=== PATIENT | female | born 1955 | race Caucasian/White ===

== ENCOUNTER 2021-06-18 11:03 | Outpatient (CLI) | payer MEDICARE, OTHER, SELFPAY ==
[2021-06-18 11:35] LABS: Basophils Percent Auto 0.5 % (0.2-1.2); Eosinophils Absolute Auto 0.1 K/mm3 (0-0.3); Eosinophils Percent Auto 1.1 % (0-4.4); Hematocrit 38.3 % (37.0-47.0); Hemoglobin 12.6 g/dL (12.0-15.0); Immature Granulocyte Absolute 0.02 K/mm3 (0.00-0.031); Immature Granulocyte Percent A 0.3 % (0-0.5); Lymphocytes Absolute Auto 3.02 K/mm3 (0.9-3.2); Lymphocytes Percent Auto 40.3 % (18.3-44.2); Mean Corpuscular HGB Conc 32.9 g/dl (32-36); Mean Corpuscular Hemoglobin 29.2 pg (26-34); Mean Corpuscular Volume 88.9 fl (80-100); Mean Platelet Volume 8.6 fl (7.4-10.4); Monocytes Absolute Auto 0.5 K/mm3 (0.1-0.6); Monocytes Percent Auto 6.3 % (2.6-8.5); Neutrophils Absolute Auto 3.9 K/mm3 (1.3-6.7); Neutrophils Percent Auto 51.5 % (45.5-73.1); Platelet Count Result 336 k/mm3 (150-375); Red Blood Count 4.31 M/mm3 (4.2-5.4); Red Cell Distribution Width 13.4 % (11.5-14.5); White Blood Count 7.5 K/mm3 (4.5-10.0)
[2021-06-18 12:01] LABS: Alanine Aminotransferase 18 U/L (4-35); Albumin Level 4.4 g/dL (3.5-5.1); Alkaline Phosphatase 81 U/L (38-126); Anion Gap 7 mmol/L (8-16); Aspartate Amino Transferase 27 U/L (14-36); Bilirubin,Total 0.9 mg/dL (0.2-1.3); Blood Urea Nitrogen 12 mg/dL (7-17); Calcium 9.1 mg/dL (8.4-10.2); Carbon Dioxide 23 mmol/L (22-30); Chloride 108 mmol/L (98-107); Cholesterol 245 mg/dL (0-200); Estimated Glomerular Filt Rate > 60; Glucose 92 mg/dL (65-110); HDL Direct 47 mg/dL; Potassium 3.9 mmol/L (3.4-5.0); Sodium 138 mmol/L (137-145); Triglycerides 149 mg/dL (<150); Uric Acid 4.1 mg/dL (2.5-7.5)
[2021-06-18 12:13] LABS: LDL Cholesterol Direct 131 mg/dL
[2021-06-18 12:22] LABS: Hemoglobin A1C 5.5 % (<5.7)
== END 2021-06-18 11:04 | disposition home or self-care (01) ==
LOC: ANHLAB 11:13
PROVIDERS: PCP Family Medicine; Visit Provider Family Medicine
DX: I10 Essential (primary) hypertension (principal); E78.2 Mixed hyperlipidemia; E79.0 Hyperuricemia without signs of inflammatory arthritis and tophaceous disease; Z13.1 Encounter for screening for diabetes mellitus; Z13.29 Encounter for screening for other suspected endocrine disorder
CPT/HCPCS: 36415; 80053; 80061; 83036; 84443; 84550; 85025

== ENCOUNTER → 2021-08-22 17:52 | Outpatient (CLI) | payer MEDICARE, OTHER, SELFPAY ==
--- NOTE | ~2021-08-22 | DEXA_ITS ---
Bone Density Report Name: Elis Pearson Age: 66 Sex: Female Ethnicity: White Date of : 1955 Indication: postmenopausal; screening for osteoporosis; height loss; Referring Provider: LORIN RAPHAEL Study: Bone densitometry was performed. Exam Date: August 22, 2021 Accession number: [id number] Bone Density: Region BMD T-score Z-score Classification AP Spine (L1-L4) 1.089 0.4 2.3 Normal Femoral Neck (Left) 0.761 -0.8 0.9 Normal Total Hip (Left) 0.819 -1.0 0.4 Normal Femoral Neck (Right) 0.790 -0.5 1.1 Normal Total Hip (Right) 0.784 -1.3 0.1 Osteopenia Total Hip Mean 0.802 -1.2 0.3 Osteopenia World Health Organization criteria for BMD impression classify patients as: Normal (T-score at or above -1.0), Osteopenia (T-score between -1.0 and -2.5), or Osteoporosis (T-score at or below -2.5). 10-year Fracture Risk(1): Major Osteoporotic Fracture 8.1% Hip Fracture 0.6% Reported Risk Factors: [place] (), Neck BMD=0.761, BMI=27.5 (1) FRAX(R) Version 3.08. Fracture probability calculated for an untreated patient. Fracture probability may be lower if the patient has received treatment. Clinical Information Provided by Patient: Has used the following medications: Vitamin D Patient maximum height was 64.0 Menopause Age: 50 Drinks caffeinated beverages Onset of menses at age 11 Number of children 1 Impression: The patient has low bone mass, based on the Right Total Hip T-score. The patient has an estimated ten-year risk of hip fracture of 0.6% and an estimated ten-year risk of major fracture of 8.1%, based on the WHO FRAX algorithm. Discussion: BONE DENSITY IS LOW AT ONE OR MORE SKELETAL SITES. This patient's lowest T-score is low at one or more skeletal sites. It meets the World Health Organization's (WHO) criteria for ?low bone mass? (T-score between -1.0 and -2.5). The patient's 10-year risk of fracture as calculated by FRAX is less than the threshold where pharmacological therapy is recommended by the National Osteoporosis Foundation (NOF). However, all treatment decisions require clinical judgment and consideration of individual patient factors, including patient preferences, comorbidities, previous drug use, risk factors not captured in the FRAX model (e.g., frailty, falls, vitamin D deficiency, increased bone turnover, interval significant decline in bone density) and possible under or overestimation of fracture risk by FRAX. The patient should follow a healthful lifestyle (good nutrition with adequate calcium and vitamin D, and appropriate weight-bearing exercise). Follow-Up: Consider repeating this study in 2 to 3 years to reassess this patient's status, or sooner if there is some new clinical indication. Reported by: LAXMI on 08/22/2021 6:31:00 PM.
--- NOTE | ~2021-08-22 | MM_ITS ---
EXAMINATION: MM screening l[facility] BI w garrett HISTORY: Screening TECHNIQUE: Craniocaudal and mediolateral oblique 3-D tomosynthesis images were obtained and synthetic 2-D images were generated. CAD analysis was submitted and interpreted. COMPARISON: Comparison to multiple prior studies sequentially, with oldest reviewed study dated . BREAST PARENCHYMAL COMPOSITION: There are scattered areas of fibroglandular density. FINDINGS: There is no evidence of suspicious mass, calcification, or architectural distortion to sugg est malignancy in either breast. There has been no suspicious interval change. IMPRESSION: 1. No mammographic evidence of malignancy. 2. Recommend routine screening mammography in one year. BI-RADS Category 1: Negative Reviewed, dictated and finalized at location A.
== END ==
PROVIDERS: PCP Family Medicine; Visit Provider Family Medicine
DX: Z12.31 Encounter for screening mammogram for malignant neoplasm of breast (principal); Z78.0 Asymptomatic menopausal state; M85.89 Other specified disorders of bone density and structure, multiple sites
CPT/HCPCS: 77063; 77067; 77080

== ENCOUNTER → 2022-05-01 09:32 | Outpatient (CLI) | payer MEDICARE, OTHER, SELFPAY ==
--- NOTE | ~2022-05-01 | XR_ITS ---
XR hand RT 2V DATE: 05/01/2022 09:56 INDICATION: Right hand pain TECHNIQUE: AP and lateral views COMPARISON: 06/25/2015 right hand and right wrist FINDINGS: There is polyarticular osteoarthritis involving the triscaphe, first carpometacarpal, first through third metacarpophalangeal joints and multiple interphalangeal joints, particularly distal in terphalangeal joint of first and second digits. No fracture or dislocation, periosteal reaction or bone destruction. No erosive change or chondrocalc inosis. IMPRESSION: Polyarticular osteoarthritis Reviewed, dictated and finalized at location A.
--- NOTE | ~2022-05-01 | XR_ITS ---
XR chest 2V DATE: 05/01/2022 09:56 INDICATION: Acute upper respiratory infection TECHNIQUE: 2 views COMPARISON: None FINDINGS: Normal heart size. No hilar or mediastinal enlargement. Moderate bilateral hyperinflation. No pulmonary infiltrate or consolidation, pleural effusion or pulmonary vascular congestion or pneumo thorax. Degenerative spurring of the thoracic spine. IMPRESSION: No active cardiopulmonary disease Degenerative spurring of the thoracic spine Reviewed, dictated and finalized at location A.
== END ==
PROVIDERS: PCP Family Medicine; Visit Provider Nurse Practitioner Gerontology
DX: M79.641 Pain in right hand (principal); R63.4 Abnormal weight loss; J06.9 Acute upper respiratory infection, unspecified; M19.041 Primary osteoarthritis, right hand; M77.8 Other enthesopathies, not elsewhere classified
CPT/HCPCS: 71046; 73120

== ENCOUNTER 2022-05-10 00:18 | Day surgery (SDC) | payer MEDICARE, OTHER, SELFPAY ==
[2022-04-26 10:14] VITALS: BMI 26.2
[2022-05-10 09:43] VITALS: BP 146/79; PULSE 106; RESP 20; TEMP 36.4; O2SAT 99
[2022-05-10] MEDS: LACTATED RINGERS 1,000 ML 150 ML IV CONT (09:54)
--- NOTE | 2022-05-10 10:07 | WPDANESEPPF ---
Anes - Initial Pre Proc Eval Procedure: Operation Date: 05/10/22 11:00 Proposed Procedures p Screening Colonoscopy - Richard Han MD Date/Time: 05/10/22 10:07 Surgeon: Richard Han MD Pre Op Diagnosis: neoplasm screening Patient Data Age: 67 Gender: F Height: 1.6 m Weight: 63.3 kg Last Vital Signs Temp 36.4 C 05/10/22 09:43 Pulse 106 H 05/10/22 09:43 Resp 20 05/10/22 09:43 BP 146/79 H 05/10/22 09:43 Pulse Ox 99 05/10/22 09:43 O2 Del Method Room Air 05/10/22 09:43 Allergies Allergy/AdvReac Type Severity Reaction Status Date / Time Penicillins Allergy Intermediate SOB and Verified 05/10/22 09:41 rash Home Medications Medication Instructions Recorded Confirmed Type antiarthritic combination no.2 900 900 mg PO .qd #90 tabs 05/31/21 04/29/22 Rx mg tablet (glucosamine-chondroitin) ascorbic acid (vitamin C) 1,000 mg 1 g PO DAILY PRN other 05/31/21 04/29/22 History tablet alendronate 70 mg tablet 70 mg PO WEEKLY 04/26/22 04/29/22 History azithromycin 250 mg tablet See Rx Instructions PO .COMPLEX #6 04/26/22 05/10/22 Rx tabs benzonatate 100 mg capsule 200 mg PO TID PRN cough #30 caps 04/26/22 05/10/22 Rx calcium citrate 315 mg-vitamin D3 1 tablet PO BID 04/26/22 04/29/22 History 5 mcg (200 unit) tablet rosuvastatin 5 mg tablet 5 mg PO DAILY 04/26/22 04/29/22 History albuterol sulfate 90 mcg/actuation 1 inh inhalation Q4-6H PRN sob #1 04/29/22 05/10/22 Rx breath activated powder inhaler ea prednisone 10 mg tablet See Rx Instructions PO DAILY 12 04/29/22 05/10/22 Rx days #30 tabs Patient hx anesthesia problems: none Family hx anesthesia problems: none Results Review: All pre-operative results and documents have been reviewed as part of the pre-operative evaluation. [facility] Past Medical History Medical History Arthritis Combined hyperlipidemia Tremor Family History Family History Sibling Patient's brother is in good health Patient's sister is in good health Mother Family history of diabetes mellitus in first degree relative Family history of heart disease in male family member before age 55 Father Patient's father is Family history of gout Grandparent Diabetes mellitus Other Family history of attention deficit hyperactivity disorder (ADHD) Family history of migraine headaches Social History Social History Social History: Smoking status: Current some day smoker Second hand tobacco smoke exposure: No Alcohol intake: current Alcohol use details: Occasionally Substance use: current Substance use type: marijuana Other substance usage details: occasionally Living arrangements: with family Gender identity (if verbalized by the patient): Female Spiritual care concerns: No Anes - Eval Final PreProcedure Day of Procedure 05/10/22 10:07 Patient weight: normal Heart: regular rate and rhythm Lungs: clear to auscultation Airway: Mallampati scale class II Neurological: alert and oriented Last oral intake: >/= 8 hours ASA classification: III Emergent: no Anesthetic plan: proceed Anesthesia type and monitoring: general GIVS and standard monitoring Results Review: All pre-operative results and documents have been reviewed as part of the pre-operative evaluation. Informed Consent: The patient's anesthetic plan and its attendant risks and benefits were discussed with the patient/family/POA. Questions were solicited and answers provided to the satisfaction of the patient/family/POA.
--- NOTE | 2022-05-10 10:09 | PM.HPGS ---
History of Present Illness History of Present Illness Consent: Risks, benefits, and alternatives have been discussed and questions answered. Patient agrees to proceed with procedure. Chief complaint: neoplasm screening Narrative: Elis Pearson is a 67 year old female referred for colon cancer screening. Her last colonoscopy was 11 years ago. Review of Systems Review of Systems: All systems reviewed & are unremarkable except as noted in HPI and below PMFSH Past Medical History Medical History Arthritis Combined hyperlipidemia Tremor Family History Family History Sibling Patient's brother is in good health Patient's sister is in good health Mother Family history of diabetes mellitus in first degree relative Family history of heart disease in male family member before age 55 Father Patient's father is Family history of gout Grandparent Diabetes mellitus Other Family history of attention deficit hyperactivity disorder (ADHD) Family history of migraine headaches Social History Social History Social History: Smoking status: Current some day smoker Second hand tobacco smoke exposure: No Alcohol intake: current Alcohol use details: Occasionally Substance use: current Substance use type: marijuana Other substance usage details: occasionally Living arrangements: with family Gender identity (if verbalized by the patient): Female Spiritual care concerns: No Meds Home Medications and Allergies Home Medications Medication Instructions Recorded Confirmed Type antiarthritic combination no.2 900 900 mg PO .qd #90 tabs 05/31/21 04/29/22 Rx mg tablet (glucosamine-chondroitin) ascorbic acid (vitamin C) 1,000 mg 1 g PO DAILY PRN other 05/31/21 04/29/22 History tablet alendronate 70 mg tablet 70 mg PO WEEKLY 04/26/22 04/29/22 History azithromycin 250 mg tablet See Rx Instructions PO .COMPLEX #6 04/26/22 05/10/22 Rx tabs benzonatate 100 mg capsule 200 mg PO TID PRN cough #30 caps 04/26/22 05/10/22 Rx calcium citrate 315 mg-vitamin D3 1 tablet PO BID 04/26/22 04/29/22 History 5 mcg (200 unit) tablet rosuvastatin 5 mg tablet 5 mg PO DAILY 04/26/22 04/29/22 History albuterol sulfate 90 mcg/actuation 1 inh inhalation Q4-6H PRN sob #1 04/29/22 05/10/22 Rx breath activated powder inhaler ea prednisone 10 mg tablet See Rx Instructions PO DAILY 12 04/29/22 05/10/22 Rx days #30 tabs Allergies Allergy/AdvReac Type Severity Reaction Status Date / Time Penicillins Allergy Intermediate SOB and Verified 05/10/22 09:41 rash Vital Signs Vital Signs - 24 hr 05/10/22 09:43 Temperature 36.4 C Pulse Rate 106 H Respiratory Rate 20 Blood Pressure 146/79 H Pulse Oximetry 99 Oxygen Delivery Room Air Exam Resp: Auscultation: clear to auscultation bilaterally Cardio: Rate: regular rate Rhythm: regular rhythm GI: GI Palp: Yes Soft to palpation and No Tenderness to palpation present (GI) Assessment and Plan Assessment and plan (1) Encounter for screening colonoscopy: Code(s): Z12.11 - Encounter for screening for malignant neoplasm of colon Status: Acute Assessment and Plan: Colonoscopy with possible biopsy or polypectomy or cautery or injection of substances.
[2022-05-10 11:12] VITALS: BP 120/63; PULSE 81; RESP 22; O2SAT 100
[2022-05-10 11:22] VITALS: BP 125/69; PULSE 68; RESP 16; O2SAT 99
[2022-05-10 11:32] VITALS: BP 129/67; PULSE 67; RESP 17; O2SAT 100
== END 2022-05-10 11:47 | disposition home or self-care (01) ==
PROVIDERS: PCP Family Medicine; Visit Provider Internal Medicine Gastroenterology
PROC: 0DJD8ZZ Inspection of Lower Intestinal Tract, Via Natural or Artificial Opening Endoscopic (ICD-10-PCS; CPT 45378; principal; 2022-05-10 11:00)
DX: Z12.11 Encounter for screening for malignant neoplasm of colon (principal); K57.30 Diverticulosis of large intestine without perforation or abscess without bleeding; K64.8 Other hemorrhoids; M19.90 Unspecified osteoarthritis, unspecified site; E78.2 Mixed hyperlipidemia; R25.1 Tremor, unspecified; F17.210 Nicotine dependence, cigarettes, uncomplicated; F12.90 Cannabis use, unspecified, uncomplicated; Z79.51 Long term (current) use of inhaled steroids
CPT/HCPCS: G0121; J2704; J7120

== ENCOUNTER 2022-09-04 11:55 | Emergency (ER) | payer MEDICARE, OTHER, SELFPAY ==
--- NOTE | 2022-09-04 12:00 | ED.DENTAL ---
HPI - Dental/Oral General Chief complaint: Dental/Oral Stated complaint: sinus pressure, tooth pain Time Seen by Provider: 09/04/22 12:00 Source: patient Mode of arrival: ambulatory Limitations: no limitations History of Present Illness HPI Narrative: Elis is a 67-year-old female patient presenting to the clinic today with complaints of sinus pressure and toothache. She reports this has been going on since Friday. States that she had this same issue last year and she seen the dentist and they told her that her tooth was not infected at that time. She is having pain to the #11 tooth with pressure and pain to the right maxillary sinuses. Is having pain with eating. She denies any fever or chills Related Data Home Medications Medication Instructions Recorded Confirmed ascorbic acid (vitamin C) 1,000 mg 1 g PO DAILY PRN other 05/31/21 09/04/22 tablet alendronate 70 mg tablet 70 mg PO WEEKLY 04/26/22 09/04/22 calcium citrate 315 mg-vitamin D3 1 tablet PO BID 04/26/22 09/04/22 5 mcg (200 unit) tablet Allergies Allergy/AdvReac Type Severity Reaction Status Date / Time Penicillins Allergy Intermediate SOB and Verified 09/04/22 12:06 rash Review of Systems Review of Systems: Pertinent positives per HPI. Patient denies any fever, chills, rash, headache, visual changes, dizziness, cough, runny nose, sore throat, shortness of breath, chest pain, palpitations, nausea, vomiting, diarrhea, constipation, abdominal pain, or any urinary issues. [facility] Past Medical History Medical History Arthritis Combined hyperlipidemia Tremor Family History Family History Sibling Patient's brother is in good health Patient's sister is in good health Mother Family history of diabetes mellitus in first degree relative Family history of heart disease in male family member before age 55 Father Patient's father is Family history of gout Grandparent Diabetes mellitus Other Family history of attention deficit hyperactivity disorder (ADHD) Family history of migraine headaches Social History Social History Social History: Smoking status: Current some day smoker Second hand tobacco smoke exposure: No Alcohol intake: current Alcohol use details: Occasionally Substance use: current Substance use type: marijuana Other substance usage details: occasionally Gender identity (if verbalized by the patient): Female Spiritual care concerns: No Comments At the time of my signature, I reviewed and agree with the nursing past medical, surgical, social, and family history. There is no relevant family history pertinent to the patient complaint. Exam Narrative: General: Well-developed, well nourished, in no apparent distress Head: Normocephalic, atraumatic Eyes: Pupils equally round and reactive to light bilaterally, EOM intact, sclera and conjunctive clear, no discharge, lids normal Ears: TMs intact and clear, ear canals clear, no drainage, grossly hearing normal. Nose: Nares patent, no discharge, no inflammation, right-sided maxillary sinus tenderness. Mouth: Oropharynx without lesions or masses, good dentition, MMM. Tenderness to palpation tooth 11. No dental abscess palpable Neck: Supple, trachea midline, no enlargement of anterior or posterior cervical nodes, no thyroid masses or goiter palpable. Cardio: Regular rate and rhythm, s1 and s2 normal, no murmur appreciated. Resp: Clear to auscultation bilaterally anteriorly and posteriorly, no rhonchi, rales, wheezing or rubs Course Course Emergency Course: Portions of this record may have been created with voice recognition software. Level of Care: Express Care Visit Vital Signs Vital signs: Vital Signs Temperature 36.8 C 09/04/22 12:07 Pulse Ra
[2022-09-04 12:07] VITALS: BP 143/71; PULSE 65; RESP 16; TEMP 36.8; O2SAT 99
== END 2022-09-04 12:25 | disposition home or self-care (01) ==
PROVIDERS: Emergency Provider Nurse Practitioner Family; PCP Family Medicine
DX: J01.00 Acute maxillary sinusitis, unspecified (principal); K08.89 Other specified disorders of teeth and supporting structures; M19.90 Unspecified osteoarthritis, unspecified site; E78.2 Mixed hyperlipidemia
CPT/HCPCS: 99213; G0463

== ENCOUNTER → 2023-09-08 12:57 | Outpatient (CLI) | payer MEDICARE, OTHER, SELFPAY ==
--- NOTE | ~2023-09-08 | XR_ITS ---
EXAMINATION: XR hip BI 2V w AP pelvis DATE: 09/08/2023 13:21 INDICATION: Right hip pain. TECHNIQUE: An anteroposterior view of the pelvis and 2 views of each hip were obtained. COMPARISON: None. FINDINGS: Bone alignment is normal. No fracture. There is advanced right hip osteoarthritis and mild left hip osteoarthritis. There is mild lumbar spondylosis. IMPRESSION: 1. Advanced right hip osteoarthritis and mild left hip osteoarthritis. Reviewed, dictated and finalized at location E. ER FRAMER
== END ==
PROVIDERS: PCP Family Medicine; Visit Provider Family Medicine
DX: M16.0 Bilateral primary osteoarthritis of hip (principal); M25.552 Pain in left hip; M25.551 Pain in right hip
CPT/HCPCS: 73521

== ENCOUNTER 2023-10-31 09:00 | Outpatient (RCR) | payer MEDICARE, OTHER, SELFPAY ==
--- NOTE | 2023-09-26 14:57 | PTOPEVAL1 ---
Assessment and note entered by Redd Rollins, PT Evaluation Information Assessment Status Evaluation Diagnosis Primary OA of Right Hip, R hip pain Onset September 2022 Subjective Information Reports that she is having a lot of pain in the hip with activity and walking. She is not having pain and rest and pain is more related to activity . She has off and on had back and hip pain attributing to problems. She cannot isolate weight onher right leg at this time. Used to frequently walk her dog and has had issues with that. Needs frequent rest breaks. She is currently on prednisone for inflammation. She feel it has helped with pain. Would like to delay or prevent need for hip replacement. Want to be able to walk a mile, walk up hills, and walk up stairs. Reported Pain Level Pain Score 0: Self Report Assessment PT Clinical Summary Patient presents with severe degenerative arthritis of R hip indicated through combination of radiographic imaging and functional hip motion. She has moderate strength in alec hip and pelvic girdle, but lacking functional ROM to complete efficient transfers and proper gait cycle. Plan of Care Interventions Gait Training,Manual Therapy,Neuro Re-education, Therapeutic Activities,Therapeutic Exercise PT Services Indicated Yes Treatment Frequency and 2x/week for 4 weeks Duration These treatments will address the objective and functional deficits as defined above. The patient will be advanced safely and appropriately in order for the patient to progress towards his/her prior level of function. Additional exercises will be introduced and as well as a comprehensive home exercise program upon discharge, if needed, ?to ensure carryover of functional gains achieved in the clinic. This treatment plan has been reviewed and agreement upon by the patient.
--- NOTE | 2023-09-26 14:57 | OPREHPOC ---
Outpatient Therapy Plan of Care This is a Multidisciplinary Plan of Care that may contain components documented by all disciplines (PT, OT, and ST.) PT Problem 1 PT Problem #1 Knowledge Deficit PT Goal 1 Goal Patient will be independent with HEP Target Visit 4 PT Problem 2 PT Problem #2 Impaired Range of Motion PT Goal 1 Goal Improve R hip extension to 10 degrees to allow for improved terminal stride length to normalize gait pattern. Target Visit 8 PT Goal 2 Goal Improve R hip internal rotation to 20 degrees to allow for closed pack positing for terminal stance of gait Target Visit 8 PT Problem 3 PT Problem #3 Impaired Strength PT Goal 1 Goal Improve alec hip flexion strength to 4+/5 to improve foot clearance with ADL and stair climbing Target Visit 8 PT Goal 2 Goal Improve alec hip abduction strength to 4/5 to improve lateral stability with ADL and gait performance Target Visit 8
--- NOTE | 2023-10-22 10:44 | PCPTNOTE ---
Patient called to cancel appointment this date due to illness.
--- NOTE | 2023-10-24 08:28 | PCPTNOTE ---
Patient cancelled Therapy Re-Evaluation secondary to illness. Rescheduled for 10/31/23.
--- NOTE | 2023-10-31 11:59 | PTOPDC ---
Assessment and note entered by Redd Rollins, PT Evaluation Information Assessment Status Discharge Diagnosis Primary OA of Right Hip, R hip pain Onset September 2022 Subjective Information Reports that she feels the exercises are helping but she still does not like putting all of her weight on her right hip. She would still like to delay needing a hip replacement longer if at all possible. Still occasionally get radiating knee pain on the inside. Would like to try therapy on her own for a while and feels comfortable with HEP. Reported Pain Level Pain Score 2: Self Report Assessment PT Clinical Summary Patient has seen some improvement in hip ROM and strength. Still very structurally limited in R hip mobility. I feel a hip replacement would be warranted when patient is ready. My only concern is that if she lets it go too long that there may be compromise to back and knee based on her gait pattern and functional mobility substitutions. Plan of Care PT Services Indicated D/C to HEP
--- NOTE | 2023-10-31 11:59 | OPREHPOC ---
Outpatient Therapy Plan of Care This is a Multidisciplinary Plan of Care that may contain components documented by all disciplines (PT, OT, and ST.) PT Problem 1 PT Problem #1 Knowledge Deficit PT Goal 1 Goal Patient will be independent with HEP Target Visit 4 Progress Met PT Problem 2 PT Problem #2 Impaired Range of Motion PT Goal 1 Goal Improve R hip extension to 10 degrees to allow for improved terminal stride length to normalize gait pattern. Target Visit 8 Progress Met PT Goal 2 Goal Improve R hip internal rotation to 20 degrees to allow for closed pack positing for terminal stance of gait Target Visit 8 Progress Partially Met PT Problem 3 PT Problem #3 Impaired Strength PT Goal 1 Goal Improve alec hip flexion strength to 4+/5 to improve foot clearance with ADL and stair climbing Target Visit 8 Progress Partially Met PT Goal 2 Goal Improve alec hip abduction strength to 4/5 to improve lateral stability with ADL and gait performance Target Visit 8 Progress Partially Met
== END 2023-10-31 15:40 | disposition home or self-care (01) ==
LOC: ANHGOSHPT 09:00
PROVIDERS: PCP Family Medicine; Visit Provider Orthopaedic Surgery
DX: M16.11 Unilateral primary osteoarthritis, right hip (principal)
CPT/HCPCS: 97110; 97140; 97161; 97530

== ENCOUNTER 2024-01-16 11:01 | Outpatient (CLI) | payer MEDICARE, OTHER, SELFPAY ==
--- NOTE | ~2024-01-16 | MM_ITS ---
EXAMINATION: MM screening [facility] BI w garrett HISTORY: Screening mammogram TECHNIQUE: Craniocaudal and mediolateral oblique 3-D tomosynthesis images were obtained and synthetic 2-D images were generated. CAD analysis was submitted and interpreted. COMPARISON: 09/18/2021 bilateral screening mammogram BREAST PARENCHYMAL COMPOSITION: There are scattered areas of fibroglandular density. FINDINGS: There is an approximately 7 mm new spiculated mass in the upper inner quadrant of the left breast at mid to posterior depth, highly suggestive of malignancy. Diagnostic left mammogram and left breast ultrasound examination are recommended. No suspicious mass, architectural distortion, malignant calcification, skin thickening or retraction is noted elsewhere in either breast. IMPRESSION: 1. Approximately 7 mm new spiculated mass in the upper inner quadrant of the left breast, highly sugg estive of malignancy. 2. Diagnostic left mammogram and left breast ultrasound examination are recommended. BI-RADS Category 0: Incomplete: Needs additional imaging evaluation. Reviewed, dictated and finalized at location A. IMPRESSION: 1. Approximately 7 mm new spiculated mass in the upper inner quadrant of the le ft breast, highly suggestive of malignancy. 2. Diagnostic left mammogram and left breast ultrasound examination are recomme nded. BI-RADS Category 0: Incomplete: Needs additional imaging evaluation.
--- NOTE | ~2024-01-16 | DEXA_ITS ---
Bone Density Report Name: OLIVE IZQUIERDO Age: 69 Sex: Female Ethnicity: White Date of : 1955 Indication: osteopenia; monitoring treatment; height loss; postmenopausal Referring Provider: LORIN RAPHAEL Study: Bone densitometry was performed. Exam Date: January 16, 2024 Accession number: [id number] Bone Density: Region BMD T-score Z-score Classification AP Spine (L1-L4) 1.185 1.3 3.4 Normal Femoral Neck (Left) 0.742 -1.0 0.8 Normal Total Hip (Left) 0.812 -1.1 0.4 Osteopenia Femoral Neck (Right) 0.895 0.4 2.2 Normal Total Hip (Right) 0.855 -0.7 0.8 Normal Total Hip Mean 0.834 -0.9 0.6 Normal World Health Organization criteria for BMD impression classify patients as: Normal (T-score at or above -1.0), Osteopenia (T-score between -1.0 and -2.5), or Osteoporosis (T-score at or below -2.5). 10-year Fracture Risk: FRAX not reported because: Treated for osteoporosis Previous Exams: Region Exam Age BMD T-score BMD Change BMD Change Date g/cm2 vs Baseline vs Previous AP Spine(L1-L4) 01/16/2024 69 1.185 1.3 0.096* 0.096* 08/22/2021 66 1.089 0.4 Total Hip(Left) 01/16/2024 69 0.812 -1.1 -0.007 -0.007 08/22/2021 66 0.819 -1.0 Total Hip(Right) 01/16/2024 69 0.855 -0.7 0.071* 0.071* 08/22/2021 66 0.784 -1.3 *Denotes significance at 95% confidence level, LSC for AP Spine = 0.022 g/cm2, LSC for Total Hip = 0.027 g/cm2 Clinical Information Provided by Patient: Is being treated for osteoporosis Has used the following medications: Fosamax (i.e. alendronate), Calcium, vit D included with calcium &amp; in another vitamin combo Patient maximum height was 64.0 Menopause Age: 50 No regular weight bearing exercise Drinks caffeinated beverages Onset of menses at age 11 Number of children 1 Impression: The patient has low bone mass, based on the Left Total Hip T-score. No significant bone loss was observed. Discussion: PATIENT UNDER TREATMENT WITH NO SIGNIFICANT BMD LOSS SINCE LAST EXAM. In an untreated patient, BMD typically declines with age. A lack of decline or gain is usually a sign that treatment is efficacious and fracture risk is reduced. It is important to ask patients whether they are taking their medications and to encourage continued and appropriate compliance with their osteoporosis therapies to reduce fracture risk. It is also important to review their risk factors a
== END 2024-01-16 11:02 ==
LOC: MICIMG 11:02
PROVIDERS: PCP Family Medicine; Visit Provider Family Medicine
DX: Z12.31 Encounter for screening mammogram for malignant neoplasm of breast (principal); N63.22 Unspecified lump in the left breast, upper inner quadrant; R92.8 Other abnormal and inconclusive findings on diagnostic imaging of breast; M85.88 Other specified disorders of bone density and structure, other site; Z78.0 Asymptomatic menopausal state
CPT/HCPCS: 77063; 77067; 77080

== ENCOUNTER 2024-02-06 09:18 | Outpatient (CLI) | payer MEDICARE, OTHER, SELFPAY ==
--- NOTE | ~2024-02-06 | MMUS_ITS ---
EXAMINATION: MM diagnostic liz LT w garrett, US breast LT limited HISTORY: Left breast mass TECHNIQUE: Additional 3-D tomosynthesis images of the left breast were performed and synthetic 2-D im ages were generated. CAD analysis was submitted and interpreted. High resolution Limited left breast ultrasound was performed. COMPARISON: Comparison to multiple prior studies sequentially, with oldest reviewed study dated 12/2020. BREAST PARENCHYMAL COMPOSITION: Not dense: There are scattered areas of fibroglandular density. FINDINGS: MAMMOGRAPHIC FINDINGS: There is a spiculated mass in the upper inner quadrant of the left breast, middle third. No suspiciou s calcifications. ULTRASOUND: Limited left breast ultrasound: At 11:00, 6 cm from the nipple there is an antiparallel hypoechoic so lid mass measuring 6 mm without significant posterior features or internal vascularity. This correspo nds to the mammographic abnormality. IMPRESSION: 1. Spiculated left breast mass with sonographic correlate at 11:00, 6 cm from the nipple measuring 6 mm maximum dimension. 2. Ultrasound-guided left breast biopsy recommended. BI-RADS category 5, highly suggestive of malignancy. Reviewed, dictated and finalized at location B. IMPRESSION: 1. Spiculated left breast mass with sonographic correlate at 11:00, 6 cm from t he nipple measuring 6 mm maximum dimension. 2. Ultrasound-guided left breast biopsy recommended. BI-RADS category 5, highly suggestive of malignancy.
== END 2024-02-06 09:19 ==
LOC: MICIMG 09:19
PROVIDERS: PCP Physician Assistant; Visit Provider Physician Assistant
DX: R92.8 Other abnormal and inconclusive findings on diagnostic imaging of breast (principal)
CPT/HCPCS: 76642; 77061; 77065; G0279

== ENCOUNTER 2024-02-17 12:35 | Outpatient (CLI) | payer MEDICARE, OTHER, SELFPAY ==
--- NOTE | ~2024-02-17 | MMUS_ITS ---
EXAMINATION: US GUIDED NEEDLE BIOPSY DATE: 02/17/2024 13:26 CDT INDICATION: 11:00 6 mm breast mass TECHNIQUE AND FINDINGS: The risks and potential benefits of the procedure were discussed with the patient, and written inform ed consent was obtained. Timeout procedure was performed. After sterile preparation of the left breas t, 1% lidocaine was utilized for local anesthesia. A 12G spring-loaded biopsy gun needle was advanced to the edge of the region of interest from a later al. approach utilizing sonographic guidance. A total of three tissue core samples were obtained thro ugh the lesion. An Inrad tissue marker clip was then placed at the biopsy site. Hemostasis was achie norbert. A sterile bandage was applied. The patient tolerated procedure well and there was no evidence of immediate complication. The patien t was given verbal instructions prior to departing from the department. A two view mammogram was perf ormed to document tissue marker clip placement. The tissue samples were submitted to surgical patholo gy for histologic analysis. IMPRESSION: Ultrasound guided biopsy of left 11:00 breast mass with biopsy marker placement. Please refer to path ology report for histologic analysis Reviewed, dictated and finalized at Location A. Reviewed, dictated and finalized at location A. IMPRESSION: Ultrasound guided biopsy of left 11:00 breast mass with biopsy marker placement . Please refer to pathology report for histologic analysis
== END 2024-02-17 12:36 | disposition home or self-care (01) ==
PROVIDERS: PCP Physician Assistant; Visit Provider Surgery
DX: C50.912 Malignant neoplasm of unspecified site of left female breast (principal)
CPT/HCPCS: 19083; 88305; 88342; 88360; A4648

== ENCOUNTER 2024-03-12 09:12 | Outpatient (CLI) | payer MEDICARE, OTHER, SELFPAY ==
--- NOTE | ~2024-03-12 | MMUS_ITS ---
US_MAGSEEDLT_US, MM post biopsy invasive LT DATE: 03/12/2024 09:56 (accession [id number]), 03/12/2024 10:27 (accession [id number]) INDICATION: Preoperative ultrasound guided localization procedure with Magseed placement TECHNIQUE: The benefits of the procedure, technique and potential complications were discussed with t akua patient. The patient verbalized understanding and gave consent. Timeout procedure was performed. The skin of the left breast was prepared with sterile Betadine. 1% lidocaine local anesthetic was adm inistered to the skin and underlying subcutaneous tissues. An introducer needle was placed from a lat eral approach into the lesion of the left breast at 11:00 6 cm from the nipple. The maxillary was dep loyed through the tip of the needle with confirmation of placement by ultrasound imaging. The patient was very cooperative and tolerated procedure well, without apparent complication or compl aint. ML and CC mammographic images obtained following the procedure reveal the Magseed within the mass adj acent to the prior biopsy marker. COMPARISON: February 17, 2024 left ultrasound-guided biopsy and postbiopsy diagnostic left mammogram IMPRESSION: Successful percutaneous ultrasound-guided Magseed placement at 11:00 left mass 6 cm from nipple Reviewed, dictated and finalized at Location A. Reviewed, dictated and finalized at location B. IMPRESSION: Successful percutaneous ultrasound-guided Magseed placement at 11:0 0 left mass 6 cm from nipple
== END 2024-03-12 09:13 | disposition home or self-care (01) ==
LOC: ANHIMG 09:14
PROVIDERS: PCP Family Medicine; Visit Provider Surgery
DX: C50.912 Malignant neoplasm of unspecified site of left female breast (principal)
CPT/HCPCS: 19285; A4648

== ENCOUNTER 2024-04-08 10:02 | Outpatient (CLI) | payer MEDICARE, OTHER, SELFPAY ==
--- NOTE | 2024-04-08 10:00 | ECG_ITS ---
Test Date: 2024-04-08 10:28:45 Measurements Intervals [place] Rate: 63 P: 32 [place]: 146 QRS: 27 QRSD: 89 T: 10 QT: 402 QTc: 412 Interpretive Statements SINUS RHYTHM NORMAL ECG No previous ECG available for comparison Electronically Signed On 04-08-2024 15:51:41 CDT by Vishal Guido M.D.
== END 2024-04-08 10:03 | disposition home or self-care (01) ==
LOC: ANHSURGERY 10:07
PROVIDERS: PCP Family Medicine; Visit Provider Surgery
DX: Z01.818 Encounter for other preprocedural examination (principal); E78.00 Pure hypercholesterolemia, unspecified
CPT/HCPCS: 93005

== ENCOUNTER → 2024-04-14 00:17 | Day surgery (SDC) | payer MEDICARE, OTHER, SELFPAY ==
[2024-04-05 10:47] VITALS: BMI 27.5
--- NOTE | 2024-04-05 10:56 | PC.NURSE ---
PRE-OP INSTRUCTIONS PLEASE READ CAREFULLY Report to the Outpatient Waiting Room, entrance under the green pavilion located off [facility], at time _0830_ on date _04/14/24_. Planned Procedure Time: _1030_. Time changes happen often and if your time is changed the preop area will call you the afternoon before. - You and your visitor will be asked to self-screen and do not enter if you have any COVID symptoms. - A mask is optional within the hospital at this time. Patients may have clear liquids (water, carbonated beverages, clear teas, apple juice) until 3 hours prior to surgery (0730 AM) with a maximum of 20 ounces. - No food from midnight until time of surgery Take the following medications with a SIP of water the morning of surgery: _NONE_ DO NOT STOP ANY OF YOUR OTHER PRESCRIPTION MEDICATIONS PRIOR TO SURGERY ?EXCEPT THE FOLLOWING Medications to discontinue per ANESTHESIA - _VITAMINS/SUPPLEMENTS 3 DAYS PRIOR TO SURGERY, Date to take last dose 04/11/24_ Please no make-up, nail zambian, hairspray, perfume, deodorant, or body powder the day of surgery. No jewelry (including any body piercings) or valuables the day of surgery, leave them at home. Please take a shower or bath the night before, or the morning of, surgery with an antibacterial soap. Wear comfortable, loose fitting clothing. - Jewelry must be removed prior to entering the operating room. Rings and piercings that are not removed may be cut off. - The hospital will not accept responsibility for valuables. - Please leave all valuables, including medications, at home the day of surgery. If you are going home after surgery, a licensed dumpster driver must drive you home. - NO public transportation without another adult if you receive anesthesia. - We recommend that an adult stay with you for 24 hours following discharge. - We also recommend that you do not drive, make important decision, drink alcoholic beverages, or take any drugs that were not prescribed by your health care provider for at least 24 hours after your discharge time. Follow any additional instructions given to you from your surgeon. If you or anyone in your household have experienced Covid symptoms in the past week, please notify your surgeon or the nurse liaison at the phone number below for possible testing. Telephone instructions given to _PATIENT_and asked if any additional questions and then verbalized understanding. Patient advised to call surgeon office or pre surgery nurse liaison [phone] if any additional questions.
[2024-04-14] VITALS (9 sets, daily range): BP systolic 122–164; BP diastolic 55–72; PULSE 64–82; RESP 12–20; TEMP 36–36.8; O2SAT 94–100
--- NOTE | ~2024-04-14 | MM_ITS ---
EXAMINATION: MM_FAXITRON_MG INDICATION: Left breast lumpectomy TECHNIQUE: 2 specimen radiographs are submitted for review. COMPARISON: None available FINDINGS: The biopsy marker and magseed are contained within the specimen radiographs. IMPRESSION: 1. Biopsy marker and magseed within the specimen radiographs. Reviewed, dictated and finalized at location .
--- NOTE | 2024-04-14 08:52 | WPDHPUPDATE1 ---
History and Physical Update Update Date/Time: 04/14/24 08:52 - Left lumpectomy with magseed localization, possible adjacent tissue transfer History and Physical has been reviewed, including an updated exam of the patient. There are NO changes in the patient's condition. Risks, benefits, and alternatives have been discussed and questions answered. Patient agrees to proceed with procedure.
[2024-04-14] MEDS: ACETAMINOPHEN 500 MG TABLET 1000 MG PO (09:41)
[2024-04-14] MEDS: LACTATED RINGERS 1,000 ML 30 ML IV CONT ×2 (10:00→11:40)
--- NOTE | 2024-04-14 10:10 | WPDANESEPPF ---
Anes - Initial Pre Proc Eval Procedure: Operation Date: 04/14/24 10:30 Proposed Procedures p Left Breast Lumpectomy with Mag Seed Localization, Possible Left [place] Lymph Node Biopsy, Possible Methylene Blue Injection, Possible Lympho Seek Injection - Mis Concepcion MD Date/Time: 04/14/24 10:10 Surgeon: Mis Concepcion MD Pre Op Diagnosis: malig neoplasm left breast Patient Data Age: 69 Gender: F Height: 1.57 m Weight: 67.7 kg Last Vital Signs Temp 36.8 C 04/14/24 09:00 Pulse 70 04/14/24 09:00 Resp 16 04/14/24 09:00 BP 142/55 H 04/14/24 09:00 Pulse Ox 97 04/14/24 09:00 O2 Del Method Room Air 04/14/24 09:00 Allergies Allergy/AdvReac Type Severity Reaction Status Date / Time Penicillins Allergy Intermediate SOB and Verified 04/14/24 09:29 rash Home Medications Medication Instructions Recorded Confirmed Type antiarthritic combination no.2 900 900 mg PO .qd #90 tabs 05/31/21 04/14/24 Rx mg tablet (glucosamine-chondroitin) ascorbic acid (vitamin C) 1,000 mg 1 g PO DAILY PRN other 05/31/21 04/14/24 History tablet calcium citrate 315 mg-vitamin D3 1 tablet PO BID 04/26/22 04/14/24 History 5 mcg (200 unit) tablet alendronate 70 mg tablet 70 mg PO WEEKLY #12 tabs 12/31/23 04/14/24 Rx rosuvastatin 5 mg tablet 5 mg PO DAILY #90 tabs 03/02/24 04/14/24 Rx tamoxifen 20 mg tablet 20 mg DAILY 04/05/24 04/14/24 History hydrocodone 5 mg-acetaminophen 325 1 tablet PO Q6H PRN pain #12 tabs 04/14/24 Rx mg tablet Patient hx anesthesia problems: none Family hx anesthesia problems: none Results Review: All pre-operative results and documents have been reviewed as part of the pre-operative evaluation. [facility]LY [facility] Past Medical History Medical History Arthritis Arthritis Combined hyperlipidemia Hyperlipidemia Tremor Family History Family History Sibling Patient's brother is in good health Patient's sister is in good health Mother Family history of diabetes mellitus in first degree relative Family history of heart disease in male family member before age 55 Father Patient's father is Family history of gout Grandparent Diabetes mellitus Other Family history of attention deficit hyperactivity disorder (ADHD) Family history of migraine headaches Social History Social History Social History: Smoking status: Former smoker Second hand tobacco smoke exposure: No Alcohol intake: former Substance use: current Substance use type: marijuana Other substance usage details: DAILY - FOR SLEEP Last use: 04/04/24 Do You Feel Safe in your Home?: Yes Lack of Transportation: No Lack of Food: Never True Current Housing: I Have Housing Concerned About Future Housing: No Difficulty Paying Gas/Electric Bills: No Difficulty Paying for Meds: No Currently Unemployed: No Education: Bachelor's Degree Difficulty w/ Childcare or Family Care: No Living arrangements: with family Occupation/Education: retired Gender identity (if verbalized by the patient): Female Sexual Orientation (if Verbalized by the Patient): Straight or Heterosexual Spiritual care concerns: No Anes - Eval Final PreProcedure Day of Procedure 04/14/24 10:10 Patient weight: overweight Heart: regular rate and rhythm Lungs: decreased breath sounds Airway: Mallampati scale class II Neurological: alert and oriented Last oral intake: >/= 8 hours ASA classification: III Emergent: no Anesthetic plan: proceed Anesthesia type and monitoring: general LMA and standard monitoring Results Review: All pre-operative results and documents have been reviewed as part of the pre-operative evaluation. Informed Consent: The patient's anesthetic plan and its attendant risks and benefits
[2024-04-14] MEDS: ceFAZolin 2 GM/D5W 50 ML 2 GM/50 ML BAG IVPB (10:25)
[2024-04-14] MEDS: BUPIVACAINE/EPINEPHRINE 0.5% 50 ML VIAL 20 ML INFILTRATE (10:34)
--- NOTE | 2024-04-14 11:30 | P.OP_ITS ---
Procedure Note - Detailed Date of Procedure 04/14/24 Pre-op Diagnosis Left breast invasive ductal carcinoma Post-op Diagnosis Same Procedure Performed Left lumpectomy with magseed localization Surgeon Mis Concepcion MD Cloth Stock Sorter Dianna Squires PA-C Anesthesia General Description of Procedure Patient was identified in the pre-operative area and brought to the OR suite. She underwent tumor localization previously by IR with magseed placement. She was laid supine in the operating table and sequential compression devices were applied. General anesthesia was induced without difficulties. The left chest was prepped and draped in a sterile fashion. The sentimag probe was used to identify the area where the magseed was placed and a superior curvilinear incision above the NAC was made. Dissection was carried down through the subcutaneous tissue into the breast tissue. The tumor was identified with palpation and using sentimag probe, and a rim of normal breast tissue was excised along with the tumor as our lumpectomy specimen. Once the specimen was completely excised, it was oriented using surgical paint according to reel fed printer instructions. The specimen was placed in the faxitron and 2 radiographs were obtained and sent to Radiology for radiographic confirmation of Tumor, biopsy marker and magseed within the specimen. Once the radiographic confirmation was received, the wound was irrigated with saline and hemostasis was assured. Several intraparenchymal sutures were used to approximate the deep breast tissue within the lumpectomy cavity to decrease the risk of seroma. The deep dermal layer was approximated using interrupted 3-0 vicryl followed by 4-0 monocryl for the skin. Dermabond was applied followed by a surgical bra. Patient was awoken from anesthesia and taken to the recovery area in stable condition. All needles, instruments and sponge counts were correct as reported by the operating room staff. Patient tolerated the procedure well with no immediate complications. Dianna Squires PA-C was required for positioning and retraction throughout the ent catrachita case. Estimated Blood Loss 5 Pathology Yes Complications No immediate complications Condition Stable Disposition PACU [facility] Billing Surgery - Charge Forward: Surgery Billing (CPT 99781)
[2024-04-14] MEDS: fentaNYL CITRATE INJ (*CRX) 100 MCG/2 ML VIAL 25 MCG IV PUSH ×2 (12:07→12:16)
[2024-04-14] MEDS: oxyCODONE HCL (*CRX) 5 MG TAB IR PO (13:00)
== END | disposition home or self-care (01) ==
PROVIDERS: PCP Family Medicine; Visit Provider Surgery
PROC: (CPT 19301; principal; 2024-04-14 10:30)
DX: C50.912 Malignant neoplasm of unspecified site of left female breast (principal); Z17.0 Estrogen receptor positive status [ER+]; E78.2 Mixed hyperlipidemia; R25.1 Tremor, unspecified; F12.90 Cannabis use, unspecified, uncomplicated; Z79.891 Long term (current) use of opiate analgesic; Z79.83 Long term (current) use of bisphosphonates; Z79.810 Long term (current) use of selective estrogen receptor modulators (SERMs); Z87.891 Personal history of nicotine dependence; Z82.49 Family history of ischemic heart disease and other diseases of the circulatory system
CPT/HCPCS: 19301; 76098; 88305; 88307; A9270; J0690; J1100; J1596; J2371; J2405; J2704; J3010; J7120

== ENCOUNTER 2024-05-27 07:46 | Outpatient (CLI) | payer MEDICARE, OTHER, SELFPAY ==
--- NOTE | ~2024-05-27 | US_ITS ---
EXAMINATION: US_BCALIMG_US DATE: 05/27/2024 10:07 CDT INDICATION: Postoperative for left breast cancer. Left breast fluid collection adjacent to the surgic al incision. TECHNIQUE: Survey imaging of the left breast was performed. The cyst(s) at the 12:00 position, 2 cm from the nipple were targeted for aspiration. The procedure and its risk and benefits were discussed with the patient. Risks included but were not limited to pain, bleeding and infection. The patient verbalized understanding and provided written consent. A time-out was performed to document the patient's name, date of , and site of procedure. The up per aspect of the patient's left breast was prepped and draped in usual sterile fashion. 1% lidocain e was used for local anesthesia. Utilizing ultrasound guidance, a 18-gauge needle was advanced into the lesion in the cyst. Aspiration was performed. The patient tolerated procedure without immediate complication. Sterile bandages were applied over t he aspiration site(s).] FINDINGS: 8 cc of yellow straw-colored fluid was obtained from the lesion of interest with complete r esolution of the cyst. Not dense: There are scattered areas of fibroglandular density. IMPRESSION: 1. Successful aspiration of left breast cyst with complete resolution. 8 cc of yellow straw-colored fluid obtained and delivered to the laboratory for appropriate evaluation is indicated by the referri ng physician. BI-RADS category 6- Known biopsy proven malignancy: Appropriate action should be taken. Reviewed, dictated and finalized at location B. IMPRESSION: 1. Successful aspiration of left breast cyst with complete resolution. 8 cc of yellow straw-colored fluid obtained and delivered to the laboratory for approp riate evaluation is indicated by the referring physician. BI-RADS category 6- Known biopsy proven malignancy: Appropriate action should b e taken.
--- NOTE | ~2024-05-27 | US_ITS ---
EXAMINATION: US breast LT limited DATE: 05/27/2024 09:25 CDT INDICATION: Postoperative for left breast cancer. Left breast fluid collection adjacent to the surgic al incision. TECHNIQUE: Survey imaging of the left breast was performed. The cyst(s) at the 12:00 position, 2 cm from the nipple were targeted for aspiration. The procedure and its risk and benefits were discussed with the patient. Risks included but were not limited to pain, bleeding and infection. The patient verbalized understanding and provided written consent. A time-out was performed to document the patient's name, date of , and site of procedure. The up per aspect of the patient's left breast was prepped and draped in usual sterile fashion. 1% lidocain e was used for local anesthesia. Utilizing ultrasound guidance, a 18-gauge needle was advanced into the lesion in the cyst. Aspiration was performed. The patient tolerated procedure without immediate complication. Sterile bandages were applied over t he aspiration site(s).] FINDINGS: 8 cc of yellow straw-colored fluid was obtained from the lesion of interest with complete r esolution of the cyst. Not dense: There are scattered areas of fibroglandular density. IMPRESSION: 1. Successful aspiration of left breast cyst with complete resolution. 8 cc of yellow straw-colored fluid obtained and delivered to the laboratory for appropriate evaluation is indicated by the referri ng physician. BI-RADS category 6- Known biopsy proven malignancy: Appropriate action should be taken. Reviewed, dictated and finalized at location B. IMPRESSION: 1. Successful aspiration of left breast cyst with complete resolution. 8 cc of yellow straw-colored fluid obtained and delivered to the laboratory for approp riate evaluation is indicated by the referring physician. BI-RADS category 6- Known biopsy proven malignancy: Appropriate action should b e taken.
== END 2024-05-27 07:47 | disposition home or self-care (01) ==
PROVIDERS: PCP Family Medicine; Visit Provider Surgery
DX: C50.912 Malignant neoplasm of unspecified site of left female breast (principal); Z98.890 Other specified postprocedural states
CPT/HCPCS: 19000; 76642; 76942; 87070; 87075; 87205

== ENCOUNTER 2024-09-21 12:34 | Outpatient (CLI) | payer MEDICARE, OTHER, SELFPAY ==
[2024-09-21 13:05] LABS: Basophils Absolute Auto 0.1 K/mm3 (0.0-0.1); Basophils Percent Auto 0.6 % (0.2-1.2); Eosinophils Absolute Auto 0.1 K/mm3 (0-0.3); Eosinophils Percent Auto 0.9 % (0-4.4); Hematocrit 39.6 % (37.0-47.0); Hemoglobin 13.1 g/dL (12.0-15.0); Immature Granulocyte Absolute 0.03 K/mm3 (0.00-0.031); Immature Granulocyte Percent A 0.4 % (0-0.5); Lymphocytes Absolute Auto 2.56 K/mm3 (0.9-3.2); Mean Corpuscular HGB Conc 33.1 g/dl (32-36); Mean Corpuscular Hemoglobin 30.3 pg (26-34); Mean Corpuscular Volume 91.7 fl (80-100); Mean Platelet Volume 8.7 fl (7.4-10.4); Monocytes Absolute Auto 0.6 K/mm3 (0.1-0.6); Monocytes Percent Auto 7.9 % (2.6-8.5); Neutrophils Absolute Auto 4.4 K/mm3 (1.3-6.7); Neutrophils Percent Auto 57.2 % (45.5-73.1); Platelet Count Result 316 k/mm3 (150-375); Red Blood Count 4.32 M/mm3 (4.2-5.4); Red Cell Distribution Width 12.7 % (11.5-14.5); White Blood Count 7.8 K/mm3 (4.5-10.0)
[2024-09-21 17:06] LABS: Alanine Aminotransferase 18 U/L (6-35); Albumin Level 4.2 g/dL (3.5-5.1); Alkaline Phosphatase 46 U/L (38-126); Anion Gap 7 mmol/L (4-12); Aspartate Amino Transferase 35 U/L (14-36); Bilirubin,Total 0.8 mg/dL (0.2-1.3); Blood Urea Nitrogen 14 mg/dL (7-17); Calcium 8.7 mg/dL (8.4-10.2); Carbon Dioxide 23 mmol/L (22-30); Chloride 107 mmol/L (98-107); Estimated Glomerular Filt Rate > 60; Glucose 133 mg/dL (65-110); Sodium 137 mmol/L (137-145)
[2024-09-22 12:09] LABS: CA 15-3 5 U/mL (<32)
== END 2024-09-21 12:35 | disposition home or self-care (01) ==
LOC: ANHLAB 12:35
PROVIDERS: PCP Family Medicine; Visit Provider Internal Medicine Hematology & Oncology
DX: C50.212 Malignant neoplasm of upper-inner quadrant of left female breast (principal); Z17.0 Estrogen receptor positive status [ER+]
CPT/HCPCS: 36415; 80053; 85025; 86300

== ENCOUNTER 2024-11-11 09:59 | Outpatient (CLI) | payer MEDICARE, OTHER, SELFPAY ==
[2024-11-11 12:23] LABS: Urine Cotinine NEGATIVE
[2024-11-11 12:40] LABS: Hemoglobin A1C 5.8 % (<5.7)
[2024-11-11 13:24] LABS: MRSA (PCR) NOT DETECTED (NOT DETECTE)
--- OUTSIDE RECORDS SUMMARY | 2024-11-12 04:14 | XMS_ITS | Continuity of Care Document ---
Author Name [facility] Organization [facility] Care Team Providers Care Scientist Electronics Name Role Phone [facility] Unavailable Unavailable Medications Combined list of outpatient medications from Department of Defense and Veterans Affairs facilities.Medications provided include 1) outpatient medications from the last 15 months, and 2) patient-reported medications. Medication Details Route Status Patient Instructions Prescription Expires Prescription Number Last Dispense Date Ordering Provider Order Date Order Qty Source ALENDRONATE SODIUM (alendronat e sodium), 70 MG, TABLET, ORAL, EXELAN PHARMACE, 4 ea. BLIST PACK Active [id number] 2023 12 Pharmac y Data Transac tion Service Facilit y ALENDRONATE SODIUM (alendronat e sodium), 70 MG, TABLET, ORAL, MARLEX PHARM., 4 ea. BLIST PACK Active [id number] 4 2023 12 Pharmac y Data Transac tion Service Facilit y ANASTROZOLE (ANASTROZOL E), 1 MG, TABLET, ORAL, ZYDUS PHARMACEU, 30 ea. BOTTLE Cancele d [id number] : 2023 0 Pharmac y Data Transac tion Service Facilit y AREXVY (respirator y syncytial virus vacc. antigen/AS0 1E adjuvant/PF ), 120MCG/0.5, KIT, INTRAMUSC, GLAXOSMITHK LINE, 1 ea. KIT Active [id number] 4 2023 1 Pharmac y Data Transac tion Service Facilit y BOOSTRIX TDAP (DIPHTH,PER TUSS(ACELL) ,TET VAC), 2.5-8-5/.5, SYRINGE, INTRAMUSC, GLAXOSMITHK LINE, 0.5 ml SYRINGE Active [id number] 4 2023 0.5 Pharmac y Data Transac tion Service Facilit y HYDROCODONE -ACETAMINOP HEN (HYDROCODON E/ACETAMINO PHEN), 5MG-325MG, TABLET, ORAL, MALLINCKROD T PH, 500 ea. BOTTLE Active [id number] 4 2023 12 Pharmac y Data Transac tion Service Facilit y PREVNAR 20 (pneumococc al 20-valent conjugate vaccine (Diphtheria crm)/PF), 0.5 ML, SYRINGE, INTRAMUSC, WYETH/PFIZE R, .5 ml SYRINGE Cancele d [id number] : 2023 0 Pharmac y Data Transac tion Service Facilit y PREVNAR 20 (pneumococc al 20-valent conjugate vaccine (Diphtheria crm)/PF), 0.5 ML, SYRINGE, INTRAMUSC, WYETH/PFIZE R, .5 ml SYRINGE Active [id number] 4 2023 0.5 Pharmac y Data Transac tion Service Facilit y ROSUVASTATI N CALCIUM (rosuvastat in calcium), 5 MG, TABLET, ORAL, [employer] 1000 ea. BOTTLE Active [id number] 4 2023 90 Pharmac y Data Transac tion Service Facilit y TAMOXIFEN CITRATE (tamoxifen citrate), 20 MG, TABLET, ORAL, AUROBINDO PHARM, 30 ea. BOTTLE Cancele d [id number] : 2023 0 Pharmac y Data Transac tion Service Facilit y Immunizations Combined list of available immunizations from the Department of Defense and Veterans Affairs facilities. Immunization Series Date Given Administered By Site Reaction Lot Number CVX Code Drug Recycling Worker Status Comments Source Pneumococcal conjugate PCV20, polysaccharid e [id number] conjugate, adjuvant, PF 2023 () Not Given Pneumococ danilo conjugate PCV20, polysacch aride [id number] conjugate , adjuvant, PF DoD Tdap 2023 () Not Given Tdap DoD zoster live 2015 [facility], () Not Given zoster live DoD Social History Combined list of available smoking, tobacco, and other social history from Department of Defense and Veterans Affairs facilities. Social History Type Response Date Comment [facility] e This section is an empty social history section. DoD
== END 2024-11-11 10:00 | disposition home or self-care (01) ==
LOC: ANHSURGERY 10:06
PROVIDERS: PCP Family Medicine; Visit Provider Orthopaedic Surgery
DX: Z01.812 Encounter for preprocedural laboratory examination (principal); M16.11 Unilateral primary osteoarthritis, right hip
CPT/HCPCS: 80307; 83036; 86850; 86900; 86901; 87641

== ENCOUNTER 2024-12-20 09:46 | Outpatient (CLI) | payer MEDICARE, OTHER, SELFPAY | END 2024-12-20 09:47 | disposition home or self-care (01) | LOC: ANHCARD 09:48 | PROVIDERS: PCP Student in an Organized Health Care Education/Training Program; Visit Provider Student in an Organized Health Care Education/Training Program | DX: R01.1 Cardiac murmur, unspecified (principal) | CPT/HCPCS: 93306 ==

== ENCOUNTER 2025-01-21 10:41 | Outpatient (CLI) | payer MEDICARE, OTHER, SELFPAY ==
--- NOTE | ~2025-01-21 | MM_ITS ---
EXAMINATION: MM diagnostic liz BI w garrett HISTORY: History of invasive carcinoma of the left breast status post lumpectomy in 03/2024. Status po st radiation therapy and tamoxifen therapy. Family history of breast cancer. TECHNIQUE: Additional 3-D tomosynthesis images of the breasts were performed and synthetic 2-D images were generated. CAD analysis was submitted and interpreted. COMPARISON: Comparison to multiple prior studies sequentially, with oldest reviewed study dated 07/21. BREAST PARENCHYMAL COMPOSITION: Dense: The breasts are heterogeneously dense, which may obscure small masses FINDINGS: The right breast is stable without evidence for malignancy. There are postsurgical changes in the upper inner quadrant of the left breast with associated architectural distortion. There are no suspicious calcifications. No discrete masses. IMPRESSION: 1. Probable postoperative changes of the left breast without evidence for residual/recurrent neoplasm . No mammographic evidence for malignancy in the right breast. 2. Recommend 6 month follow-up diagnostic left mammogram. BI-RADS category 3, probably benign findings. Reviewed, dictated and finalized at location A. IMPRESSION: 1. Probable postoperative changes of the left breast without evidence for resid ual/recurrent neoplasm. No mammographic evidence for malignancy in the right br east. 2. Recommend 6 month follow-up diagnostic left mammogram. BI-RADS category 3, probably benign findings.
--- OUTSIDE RECORDS SUMMARY | 2025-01-21 11:22 | XMS_ITS | Encounter Summary ---
Author Organization [facility] Address 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 Gender Identity Not on file Sexual Orientation Not on file documented as of this encounter Plan of Treatment Upcoming Encounters Date Type Department Care Team (Late Contact Info) Description 03/28/2025 3:45 PM CDT Office Visit [facility] Oncology and Hematology - Brayan [address] [facility] [address] [place] [address] Esdras Crowley MD [address] [facility] [address] [place] [address] documented as of this encounter Procedures Procedure Name Priority Date/Time Associated Diagnosis Comments XR CHEST PA AND LATERAL 2 VW Routine 11/25/2007 12:27 PM ROTO ROOTER OPERATOR documented in this encounter Results * XR CHEST PA AND LATERAL (11/25/2007 12:27 PM ROTO ROOTER OPERATOR) Anatomical Region Laterality Modality Chest Other 11/25/2007 12:2 7 PM ROTO ROOTER OPERATOR Narrative 11/25/2007 12:29 PM ROTO ROOTER OPERATOR [address] [address] Admit Date: 11/25/2007 OLIVE PEARSON Sex: F Admit Prov: YINKA ELLISON Date: 1955 Primary Care Prov: PCP , NONE CMRN: [id number] Room: [facility]: [id number] IMAGING SERVICES Ordering Prov: N/A Accession Number: [id number] Interpretation PA and lateral chest x-ray. History: Cough. Findings: The lung narvaez are clear and well aerated without significant infiltrate. There is no pneumothorax or pleural effusion. The heart size is normal. Impression: No acute disease. . Dictated by: EDWIGE MOLINA 11/25/2007 12:29 Electronically signed by: EDWIGE MOLINA 11/25/2007 12:29 Procedure Note Edwige Molina 11/25/2007 [address] [address] [place], [place] [address] Admit Date: 11/25/2007 OLIVE PEARSON Sex: F Admit Prov: YINKA ELLISON Date: 1955 Primary Care Prov: PCP , NONE CMRN: [id number] [id number] [facility] Ordering Prov: N/A Interpretation PA and lateral chest x-ray. History: Cough. Findings: The lung narvaez are clear and well aerated withoutsignificant infiltrate. There is no pneumothorax or pleural effusion. The heartsize is normal. Impression: No acute disease. . Dictated by: EDWIGE MOLINA 11/25/2007 12:29 Electronically signed by: EDWIGE MOLINA 11/25/2007 12:29 us Yinka Ellison MD DIAGNOSTIC IMAGING ORDERABLES F inal Result documented in this encounter Visit Diagnoses Not on filedocumented in this encounter Care Teams Successfactors Consultant Relationship Specialty Start Date End Date Rostovtseva, Mandy, MD [address] [facility] [address] [place] [address] PCP - General Family Practice 02/26/24 documented as of this encounter
--- OUTSIDE RECORDS SUMMARY | 2025-01-21 11:22 | XMS_ITS | Encounter Summary ---
Author Organization [facility] Address [address] [place] [address] Care Team Providers Care Distribution Tech Name Role Phone Mandy Garcias MD Primary Care Provider +1- [phone] Encounter Details Date Type Department Care Team (Latest Contact Info) Description 01/20/2004 Outpatient Historical HIS [facility] Flako Lopez MD ACUTE URI NOS (Primary Dx) Social History Tobacco Use Types Packs/Day Years Used Date Smoking Tobacco: Never Assessed Comments Unknown Sex and Gender Information Value Date Recorded Sex Assigned at Not on file Legal Sex Female 2:53 AM CHIEF ESTIMATOR Gender Identity Not on file Sexual Orientation Not on file documented as of this encounter Plan of Treatment Upcoming Encounters Date Type Department Care Team (Late st Contact Info) Description 03/28/2025 3:45 PM CDT Office Visit [facility] Oncology and Hematology - Brayan [address] [facility] [address] [place] [address] Esdras Crowley MD [address] [facility] [address] [place] [address] documented as of this encounter Visit Diagnoses Diagnosis Acute upper respiratory infections of unspecified site- Primary documented in this encounter Care Teams Distribution Tech Relationship Specialty Start Date End Date Mandy Garcias MD [address] [facility] [address] [place] [address] PCP - General Family Practice 02/26/24 documented as of this encounter
--- OUTSIDE RECORDS SUMMARY | 2025-01-21 11:22 | XMS_ITS | Clinical Summary ---
Author Organization [facility] Julien Rodríguez Address [address] [place] [address] Care Team Providers Care Bobcat Driver/Labor Name Role Phone Mandy Garcias MD Primary Care Provider +1- [phone] Allergies Active Allergy Reactions Criticality Noted Date Comments Penicillins Rash Low 02/26/2024 Medications alendronate sodium (ALENDRONATE ORAL) Take by mouth. Active GLUCOSAMINE SULFATE ORAL Take by mouth. Active Cholecalciferol, Vitamin D3, 50 mcg (2,000 unit) Capsule Take by mouth. Active ascorbic acid, vitamin C, (VITAMIN C) 1,000 mg Tablet Take 1,000 mg by mouth daily. Active ibuprofen (MOTRIN) 200 mg tablet Take 200 mg by mouth every 6 hours as needed for Pain, Mild. Active tamoxifen (NOLVADEX) 20 mg tablet Take 1 Tablet (20 mg) by mouth daily. 90 Tablet 2 03/19/2024 Active rosuvastatin (CRESTOR) 5 mg tablet Take 5 mg by mouth daily. 07/23/2024 Active Active Problems No known active problems Encounters Date Type Department Care Team Description 01/05/2025 External Device Data STL ABSTRACTION Provider, Abstract 12/25/2024 External Device Data STL ABSTRACTION Provider, Abstract 12/24/2024 External Device Data ST[facility] ABSTRACTION Provider, Abstract 12/22/2024 External Device Data ST[facility] ABSTRACTION Provider, Abstract 12/08/2024 External Device Data ST[facility] ABSTRACTION Provider, Abstract 11/16/2024 External Device Data STL ABSTRACTION Provider, Abstract 11/10/2024 External Device Data STL ABSTRACTION Provider, Abstract 11/10/2024 External Device Data STL ABSTRACTION Provider, Abstract from Last 3 Months Family History Medical History Relation Name Comments Diabetes Brother Heart Disease Brother Melanoma Brother Melanoma Father Heart Disease Mother Relation Name Status Comments Brother Daughter Alive Father Mother Social History Tobacco Use Types Packs/Day Years Used Date Smoking Tobacco: Never Smokeless Tobacco: Never Tobacco Cessation:Counseling Given: Not Answered Alcohol Use Standard Drinks/Week Comments Not Currently 0 (1 standard drink = 0.6 oz pur e alcohol) Comments Unknown Sex and Gender Information Value Date Recorded Sex Assigned at Not on file Legal Sex Female 2:53 AM RUBBER PRESS TENDER Gender Identity Not on file Sexual Orientation Not on file Last Filed Vital Signs Vital Sign Reading Time Taken Comments Blood Pressure 128/72 09/29/2024 11:15 AM RUBBER PRESS TENDER Pulse 68 09/29/2024 11:15 AM RUBBER PRESS TENDER Temperature 36.3 C (97.3 F) 09/29/2024 11:15 AM RUBBER PRESS TENDER Respiratory Rate 15 09/29/2024 11:15 AM RUBBER PRESS TENDER Oxygen Saturation 97% 09/29/2024 11:15 AM RUBBER PRESS TENDER Inhaled Oxygen Concentration - - Weight 70.9 kg (156 lb 3.2 oz) 09/29/2024 11:15 AM RUBBER PRESS TENDER Height 157.5 cm (5' 2 ) 02/26/2024 1:28 PM CDT Body Mass Index 28.57 02/26/2024 1:28 PM CDT Plan of Treatment Upcoming Encounters Date Type Department Care Team (Late st Contact Info) Description 03/28/2025 3:45 PM CDT Office Visit [facility] Oncology and Hematology - Brayan [address] [facility] [address] [place] [address] Esdras Crowley MD [address] [facility] [address] [place] [address] Health Maintenance Due Date Last Done Comments Pre-Diabetes and Diabetes Screening 1955 DTAP/TDAP/TD VACCINES (1 - Tdap) 1973 Traditional Medicare (ACO) A nnual Wellness Visit 1973 FIT-DNA Q 3 years 1999 FIT/FOBT Q 1 year 1999 Flex Sig/CT Colonography Q 5 years 1999 PNEUMOCOCCAL VACCINE 50+ YEA RS (1 of 1 - PCV) 01/17/2004 ZOSTER VACCINE (1 of 2) 01/17/2004 INFLUENZA VACCINE (#1) 2024 BREAST CANCER SCREENING 03/12/2025 03/12/20 24, 02/06/2024, 2024, Additional history exists RSV VACCINE (60+ or ) (1 - 1-dose 75+ series) 2029 COLORECTAL SCREENING 05/10/2032 05/10/2022 Colorectal Cancer Screening 05/10/2032 OSTEOPOROSIS SCREENING Completed 2024, 2020 Insurance MEDICARE PART A AND B [facility] Care Teams Bobcat Driver/Labor Relationship Specialty Start Date End Date Mandy Garcias MD [address] [facility] [address] [facility] [address] [place] [address] PCP - General Family Practice 02/26/24
== END 2025-01-21 10:42 | disposition home or self-care (01) ==
LOC: ANHIMG 10:42
PROVIDERS: PCP Family Medicine; Visit Provider Surgery
DX: R92.8 Other abnormal and inconclusive findings on diagnostic imaging of breast (principal); C50.912 Malignant neoplasm of unspecified site of left female breast; Z98.890 Other specified postprocedural states
CPT/HCPCS: 77062; 77066; G0279

== ENCOUNTER 2025-03-18 11:59 | Outpatient (CLI) | payer MEDICARE, OTHER, SELFPAY ==
--- OUTSIDE RECORDS SUMMARY | 2025-03-18 12:03 | XMS_ITS | Clinical Summary ---
Author Organization [facility] Julien Rodríguez Address [address] [place] [address] Care Team Providers Care Crime Prevention Police Officer Name Role Phone Mandy Garcias MD Primary Care Provider +1- [phone] Allergies Active Allergy Reactions Criticality Noted Date [...] hours as needed for Pain, Mild. Active rosuvastatin (CRESTOR) 5 mg tablet Take 5 mg by mouth daily. 07/23/2024 Active tamoxifen (NOLVADEX) 20 mg tablet TAKE 1 TABLET(20 MG) BY MOUTH DAILY 90 Tablet 02/07/2025 Active Active Problems No known active problems Encounters Date Type Department Care Team Description 03/10/2025 External Device Data STL ABSTRACTION Provider, Abstract 03/09/2025 External Device Data STL ABSTRACTION Provider, Abstract 03/08/2025 External Device Data STL ABSTRACTION Provider, Abstract 02/06/2025 Refill [facility] Oncology and Hematology - Brayan [address] [facility] [address] [place] [address] Esdras Crowley MD 01/05/2025 External Device Data STL ABSTRACTION Provider, [...] on file Legal Sex Female 2:53 AM CONSOLIDATION ACCOUNTANT Gender Identity Not on file Sexual Orientation Not on file Last Filed Vital Signs Vital Sign Reading Time Taken Comments Blood Pressure 128/72 09/29/2024 11:15 AM CONSOLIDATION ACCOUNTANT Pulse 68 09/29/2024 11:15 AM CONSOLIDATION ACCOUNTANT Temperature 36.3 C (97.3 F) 09/29/2024 11:15 AM CONSOLIDATION ACCOUNTANT Respiratory Rate 15 09/29/2024 11:15 AM CONSOLIDATION ACCOUNTANT Oxygen Saturation 97% 09/29/2024 11:15 AM CONSOLIDATION ACCOUNTANT Inhaled Oxygen Concentration - - Weight 70.9 kg (156 lb 3.2 oz) 09/29/2024 11:15 AM CONSOLIDATION ACCOUNTANT Height 157.5 cm (5' 2) 02/26/2024 1:28 PM CDT Body Mass Index 28.57 02/26/2024 1:28 PM CDT Plan of Treatment Upcoming Encounters Date Type Department Care Team (Late st Contact Info) Description 03/28/2025 3:45 PM CDT Office Visit [facility] Oncology and Hematology - Brayan [address] [facility] [address] [place] [address] Esdras Crowley MD [address] [facility] [address] [place] [address] Health Maintenance Due Date Last Done Comments DTAP/TDAP/TD VACCINES (1 - Tdap) 1973 Traditional Medicare (ACO) A nnual Wellness Visit 1973 FIT-DNA Q 3 years 1999 FIT/FOBT Q 1 year 1999 Flex Sig/CT Colonography Q 5 years 1999 PNEUMOCOCCAL VACCINE 50+ YEA RS (1 of 1 - PCV) 01/17/2004 ZOSTER VACCINE (1 of 2) 01/17/2004 INFLUENZA VACCINE (#1) 2024 BREAST CANCER SCREENING 03/12/2025 03/12/20, 02/06/2024, 2024, Additional history exists OSTEOPOROSIS SCREENING 01/15/2029 2024, 2020 RSV VACCINE (60+ or ) (1 - 1-dose 75+ series) 2029 COLORECTAL SCREENING 05/10/2032 05/10/2022 Colorectal Cancer Screening 05/10/2032 Insurance MEDICARE PART A AND B [facility] [employer] [facility] Address: [facility] [address] [place] [address] Care Teams Crime Prevention Police Officer Relationship Specialty Start Date End Date Mandy Garcias MD [address] [facility] [address] [place] [address] PCP - General Family Practice 02/26/24
--- OUTSIDE RECORDS SUMMARY | 2025-03-18 12:03 | XMS_ITS | Encounter Summary ---
Author Organization [facility] Address [address] [place] [address] Care Team Providers Care Executive Director Of Nursing Name Role Phone Mandy Garcias MD Primary Care Provider +1- [phone] Encounter Details Date Type Department Care Team (Late Contact Info) Description 11/25/2007 Outpatient Historical HIS [facility] Yinka Baez MD NO ADDRESS ON FILE Social History Tobacco Use Types Packs/Day Years Used Date Smoking Tobacco: Never Assessed Comments Unknown Sex and Gender Information Value Date Recorded Sex Assigned at Not on file Legal Sex Female 2:53 AM AGRICULTURAL AND FORESTRY SUPERVISOR Gender Identity Not on file Sexual Orientation Not on file documented as of this encounter Plan of Treatment Upcoming Encounters Date Type Department Care Team (Late Contact Info) Description 03/28/2025 3:45 PM CDT Office Visit [facility] Oncology and Hematology - Brayan [address] [facility] [address] [place] [address] Esdras Crowley MD [address] [facility] [address] [place] [address] documented as of this encounter Procedures Procedure Name Priority Date/Time Associated Diagnosis Comments XR CHEST PA AND LATERAL 2 VW Routine 11/25/2007 12:27 PM AGRICULTURAL AND FORESTRY SUPERVISOR documented in this encounter Results * XR CHEST PA AND LATERAL (11/25/2007 12:27 PM AGRICULTURAL AND FORESTRY SUPERVISOR) Anatomical Region Laterality Modality Chest Other 11/25/2007 12:2 7 PM AGRICULTURAL AND FORESTRY SUPERVISOR Narrative 11/25/2007 12:29 PM AGRICULTURAL AND FORESTRY SUPERVISOR [address] [address] Admit Date: 11/25/2007 OLIVE PEARSON Sex: F Admit Prov: YINKA ELLISON Date: 1955 Primary Care Prov: PCP , NONE CMRN: [id number] Room: [facility]: [id number] IMAGING SERVICES Ordering Prov: N/A Accession Number: [id number] Interpretation PA and lateral chest x-ray. History: Cough. Findings: The lung narvaez are clear and well aerated without significant infiltrate. There is no pneumothorax or pleural effusion. The heart size is normal. Impression: No acute disease. . Dictated by: EDWIGE MOLINA 11/25/2007 12:29 Electronically signed by: EDWIGE MOLINA 11/25/2007 12:29 Procedure Note Edwige Molina 11/25/2007 [address] [address] [place], [place] [address] Admit Date: 11/25/2007 OLIVE PEARSON Sex: F Admit Prov: YINKA ELLISON Date: 1955 Primary Care Prov: PCP , NONE CMRN: [id number] Room: [facility]: [id number] IMAGING SERVICES Ordering Prov: N/A Interpretation PA [...] on filedocumented in this encounter Care Teams Executive Director Of Nursing Relationship Specialty Start Date End Date Rostovtseva, Mandy, MD [address] [facility] [address] [place] [address] PCP - General Family Practice 02/26/24 documented as of this encounter
--- OUTSIDE RECORDS SUMMARY | 2025-03-18 12:03 | XMS_ITS | Continuity of Care Document ---
Author Name [facility] Organization [facility] Care Team Providers Care Infrastructure Engineer Name Role Phone [facility] Unavailable Unavailable Medications Combined list of outpatient [...] MARLEX PHARM., 4 ea. BLIST PACK Active [id number] 2023 12 Pharmac y Data Transac tion Service Facilit y ANASTROZOLE (ANASTROZOL E), 1 MG, TABLET, ORAL, ZYDUS PHARMACEU, 30 ea. BOTTLE Cancele d [id number] : 2023 0 Pharmac y Data Transac tion Service Facilit y AREXVY (respirator y syncytial virus vacc. antigen/AS0 1E adjuvant/PF ), 120MCG/0.5, KIT, INTRAMUSC, GLAXOSMITHK LINE, 1 ea. KIT Active [id number] 2023 1 Pharmac y Data Transac tion Service Facilit y BOOSTRIX TDAP (DIPHTH,PER TUSS(ACELL) ,TET VAC), 2.5-8-5/.5, SYRINGE, INTRAMUSC, GLAXOSMITHK LINE, 0.5 ml SYRINGE Active [id number] 4 2023 0.5 Pharmac y Data Transac tion Service Facilit y HYDROCODONE -ACETAMINOP HEN (HYDROCODON E/ACETAMINO PHEN), 5MG-325MG, TABLET, ORAL, MALLINCKROD T PH, 500 ea. BOTTLE Active [id number] 2023 12 Pharmac y Data Transac tion Service Facilit y PREVNAR 20 (pneumococc al 20-valent conjugate vaccine (Diphtheria crm)/PF), 0.5 ML, SYRINGE, INTRAMUSC, WYETH/PFIZE R, .5 ml SYRINGE Cancele d [id number] : 2023 0 Pharmac y Data Transac tion Service Facilit y PREVNAR 20 (pneumococc al 20-valent conjugate vaccine (Diphtheria crm)/PF), 0.5 ML, SYRINGE, INTRAMUSC, WYETH/PFIZE R, .5 ml SYRINGE Active [id number] 2023 0.5 Pharmac y Data Transac tion Service Facilit y ROSUVASTATI N CALCIUM (rosuvastat in calcium), 5 MG, TABLET, ORAL, [employer] 1000 ea. BOTTLE Active [id number] 4 2023 90 Pharmac y Data Transac tion Service Facilit y TAMOXIFEN CITRATE (tamoxifen citrate), 20 MG, TABLET, ORAL, AUROBINDO PHARM, 30 ea. BOTTLE Cancele d [id number] : 2023 0 Pharmac y Data Transac tion Service Facilit y Immunizations Combined list of available immunizations from the Department of Defense and Veterans Affairs facilities. Immunization Series Date Given Administered By Site Reaction Lot Number CVX Code Drug Video Software Engineer Status Comments Source Pneumococcal conjugate PCV20, polysaccharid e [id number] conjugate, adjuvant, PF 2023 () Not Given Pneumococ danilo conjugate PCV20, polysacch aride [id number] conjugate , adjuvant, PF DoD Tdap 2023 () Not Given Tdap DoD zoster live 2015 BEST, () Not Given zoster live DoD Social History Combined list of available smoking, tobacco, and other social history from Department of Defense and Veterans Affairs facilities. Social History Type Response Date Comment Sour e This section is an empty social history section. DoD
--- OUTSIDE RECORDS SUMMARY | 2025-03-18 12:03 | XMS_ITS | Encounter Summary ---
Author Organization [facility] Address [address] [place] [address] Care Team Providers Care Wool Supplier Name Role Phone Mandy Garcias MD Primary Care Provider [phone]- [phone] Encounter Details Date Type Department Care Team (Latest Contact Info) Description 01/20/2004 Outpatient Historical HIS [facility] Flako Lopez MD ACUTE URI NOS (Primary Dx) Social History Tobacco Use Types Packs/Day Years Used Date Smoking Tobacco: Never Assessed Comments Unknown Sex and Gender Information Value Date Recorded Sex Assigned at Not on file Legal Sex Female 2:53 AM SAFETY INVESTIGATOR/CAUSE ANALYST Gender Identity Not on file Sexual Orientation Not on file documented as of this encounter Plan of Treatment Upcoming Encounters Date Type Department Care Team (Late st Contact Info) Description 03/28/2025 3:45 PM CDT Office Visit [facility] Oncology and Hematology - Brayan [address] [facility] [address] [place] [address] Esdras Crowley MD [address] [facility] [address] [place] [address] documented as of this encounter Visit Diagnoses Diagnosis Acute upper respiratory infections of unspecified site- Primary documented in this encounter Care Teams Wool Supplier Relationship Specialty Start Date End Date Mandy Garcias MD [address] [facility] [address] [place] [address] PCP - General Family Practice 02/26/24 documented as of this encounter
[2025-03-18 12:20] LABS: Basophils Percent Auto 0.6 % (0.2-1.2); Eosinophils Absolute Auto 0.1 K/mm3 (0-0.3); Eosinophils Percent Auto 1.4 % (0-4.4); Hemoglobin 11.5 g/dL (12.0-15.0); Immature Granulocyte Absolute 0.02 K/mm3 (0.00-0.031); Immature Granulocyte Percent A 0.3 % (0-0.5); Lymphocytes Percent Auto 38.6 % (18.3-44.2); Mean Corpuscular HGB Conc 32.9 g/dl (32-36); Mean Corpuscular Hemoglobin 29.5 pg (26-34); Mean Corpuscular Volume 89.7 fl (80-100); Mean Platelet Volume 8.4 fl (7.4-10.4); Monocytes Absolute Auto 0.5 K/mm3 (0.1-0.6); Monocytes Percent Auto 7.2 % (2.6-8.5); Neutrophils Absolute Auto 3.2 K/mm3 (1.3-6.7); Neutrophils Percent Auto 51.9 % (45.5-73.1); Platelet Count Result 316 k/mm3 (150-375); Red Cell Distribution Width 13.5 % (11.5-14.5); White Blood Count 6.2 K/mm3 (4.5-10.0)
[2025-03-18 13:37] LABS: Alanine Aminotransferase 12 U/L (6-35); Albumin Level 3.8 g/dL (3.5-5.1); Alkaline Phosphatase 47 U/L (38-126); Anion Gap 6 mmol/L (4-12); Aspartate Amino Transferase 25 U/L (14-36); Bilirubin,Total 0.3 mg/dL (0.2-1.3); Blood Urea Nitrogen 12 mg/dL (7-17); Calcium 9.2 mg/dL (8.4-10.2); Carbon Dioxide 26 mmol/L (22-30); Chloride 107 mmol/L (98-107); Estimated Glomerular Filt Rate > 60; Glucose 98 mg/dL (65-110); Potassium 4.2 mmol/L (3.4-5.0); Sodium 139 mmol/L (137-145)
[2025-03-20 07:38] LABS: CA 15-3 6 U/mL (<32)
== END 2025-03-18 12:00 | disposition home or self-care (01) ==
PROVIDERS: PCP Family Medicine; Visit Provider Internal Medicine Hematology & Oncology
DX: C50.212 Malignant neoplasm of upper-inner quadrant of left female breast (principal); Z17.0 Estrogen receptor positive status [ER+]
CPT/HCPCS: 36415; 80053; 85025; 86300

== ENCOUNTER 2025-07-25 08:38 | Outpatient (CLI) | payer MEDICARE, OTHER, SELFPAY ==
--- OUTSIDE RECORDS SUMMARY | 2025-07-25 09:05 | XMS_ITS | Encounter Summary ---
Author Organization [facility] Address 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 Oncology and Hematology - Brayan [address] [facility] [address] [place] [address] Esdras Crowley MD [address] [facility] [address] [place] [address] documented as of this encounter Visit Diagnoses Diagnosis Acute upper respiratory infections of unspecified site- Primary documented in this encounter Care Teams Field Enumerator Relationship Specialty Start Date End Date Javier Wilson MD [address] [facility] [address] [place] [address] PCP - General Family Practice 03/28/25 documented as of this encounter
--- OUTSIDE RECORDS SUMMARY | 2025-07-25 09:05 | XMS_ITS | Clinical Summary ---
Author Organization [facility] Julien Rodríguez Address [address] [place] [address] Care Team Providers Care System Development Engineer Name Role Phone Javier Wilson MD Primary Care Provider [phone] Allergies Active Allergy Reactions Criticality Noted Date Comments Penicillins Rash Low 02/26/2024 Medications alendronate sodium (ALENDRONATE ORAL) Take by mouth. Active GLUCOSAMINE SULFATE ORAL Take by mouth. Active Cholecalciferol , Vitamin D3, 50 mcg (2,000 unit) Capsule Take by mouth. Active ascorbic acid, vitamin C, (VITAMIN C) 1,000 mg Tablet Take 1,000 mg by mouth daily. Active ibuprofen (MOTRIN) 200 mg tablet Take 200 mg by mouth every 6 hours as needed for Pain, Mild. Active rosuvastatin (CRESTOR) 5 mg tablet Take 5 mg by mouth daily. 4 Active tamoxifen (NOLVADEX) 20 mg tablet TAKE 1 TABLET(20 MG) BY MOUTH DAILY 90 Tablet 3 5 Active tamoxifen (NOLVADEX) 20 mg tablet TAKE 1 TABLET(20 MG) BY MOUTH DAILY 90 Tablet 5 06/27/20 25 Discontinued Active Problems No known active problems Encounters Date Type Department Care Team Description 07/12/2025 External Device Data STL ABSTRACTION Provider, Abstract 07/05/2025 External Device Data STL ABSTRACTION Provider, Abstract 06/27/2025 Refill [facility] Oncology and Hematology - Brayan [address] [place] [address] Esdras Crowley MD 06/08/2025 External Device Data STL ABSTRACTION Provider, Abstract 05/24/2025 External Device Data STL ABSTRACTION Provider, Abstract 05/04/2025 External Device Data STL ABSTRACTION Provider, Abstract 05/03/2025 External Device Data STL ABSTRACTION Provider, Abstract [...] on file 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 Gender Identity Not on file Sexual Orientation Not on file Last Filed Vital Signs Vital Sign Reading Time Taken Comments Blood Pressure 118/65 03/28/2025 2:55 PM CDT Pulse 84 03/28/2025 2:55 PM CDT Temperature 36.7 C (98 F) 03/28/2025 2:55 PM CDT Respiratory Rate 15 03/28/2025 2:55 PM CDT Oxygen Saturation 96% 03/28/2025 2:55 PM CDT Inhaled Oxygen Concentration - - Weight 69.3 kg (152 lb 12.8 oz) 03/28/2025 2:55 PM CDT Height 157.5 cm (5' 2) 02/26/2024 1:28 PM CDT Body Mass Index 27.95 02/26/2024 1:28 PM CDT Plan of Treatment Upcoming Encounters Date Type Department Care Team (Late st Contact Info) Description 07/29/2025 10:30 AM CDT Office Visit [facility] Oncology and Hematology - Brayan [address] [place] [address] Esdras Crowley MD [address] [facility] [address] [place] [address] Health Maintenance Due Date Last Done Comments DTAP/TDAP/TD VACCINES (1 - Tdap) 1973 FIT-DNA Q 3 years 1999 FIT/FOBT Q 1 year 1999 Flex Sig/CT Colonography Q 5 years 1999 PNEUMOCOCCAL VACCINE 50+ YEA RS (1 of 1 - PCV) 01/17/2004 ZOSTER VACCINE (1 of 2) 01/17/2004 INFLUENZA VACCINE (#1) 2025 BREAST CANCER SCREENING 01/21/2026 01/22/20, 03/12/2024, 02/06/2024, Additional history exists OSTEOPOROSIS SCREENING 01/15/2029 2024, 2020 RSV VACCINE (60+ or ) (1 - 1-dose 75+ series) 2029 COLORECTAL SCREENING 05/10/2032 05/10/2022 Colorectal Cancer Screening 05/10/2032 Insurance MEDICARE PART A AND B [facility] Care Teams System Development Engineer Relationship Specialty Start Date End Date Javier Wilson MD [address] [facility] [address] [place] [address] PCP - General Family Practice 03/28/25
--- OUTSIDE RECORDS SUMMARY | 2025-07-25 09:05 | XMS_ITS | Encounter Summary ---
Author Organization [facility] Address 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 Gender Identity Not on file Sexual Orientation Not on file documented as of this encounter Plan of Treatment Upcoming Encounters Date Type Department Care Team (Late st Contact Info) Description 07/29/2025 10:30 AM CDT Office Visit [facility] Oncology and Hematology - Brayan [address] [facility] [address] [place] [address] Esdras Crowley MD [address] [facility] [address] [place] [address] documented as of this encounter Procedures Procedure Name Priority Date/Time Associated Diagnosis Comments XR CHEST PA AND LATERAL 2 VW Routine 11/25/2007 12:27 PM LANDSCAPE CONTRACTOR documented in this encounter Results * XR CHEST PA AND LATERAL (11/25/2007 12:27 PM LANDSCAPE CONTRACTOR) Anatomical Region Laterality Modality Chest Other 11/25/2007 12:2 7 PM LANDSCAPE CONTRACTOR Narrative 11/25/2007 12:29 PM LANDSCAPE CONTRACTOR [address] [address] Admit Date: 11/25/2007 ELIS PEARSON Sex: F Admit Prov: YINKA ELLISON Date: 1955 Primary Care Prov: PCP , NONE CMRN: [id number] Room: [facility]: [id number] IMAGING SERVICES Ordering Prov: N/A Accession Number: [id number] Interpretation PA and lateral chest x-ray. History: Cough. Findings: The lung narvaez are clear and well aerated without significant infiltrate. There is no pneumothorax or pleural effusion. The heart size is normal. Impression: No acute disease. . Dictated by: EDWIGE MOLINA 11/25/2007 12:29 Electronically signed by: EDWIGE MOLINA 11/25/2007 12:29 Procedure Note Edwige Molina 11/25/2007 [address] [address] [place], [place] [address] Admit Date: 11/25/2007 ELIS PEARSON Sex: F Admit Prov: YINKA ELLISON Date: 1955 Primary Care Prov: PCP , NONE CMRN: [id number] [id number] IM[facility]ING [facility] Ordering Prov: N/A Interpretation PA [...] on filedocumented in this encounter Care Teams Gasoline Plant Operator Relationship Specialty Start Date End Date Javier Wilson MD [address] [facility] [address] [place] [address] PCP - General Family Practice 03/28/25 documented as of this encounter
[2025-07-25 09:59] LABS: Hematocrit 40.2 % (37.0-47.0); Hemoglobin 13.0 g/dL (12.0-15.0); Immature Granulocyte Percent A 0.3 % (0-0.5); Lymphocytes Absolute Auto 2.44 K/mm3 (0.9-3.2); Mean Corpuscular HGB Conc 32.3 g/dl (32-36); Mean Corpuscular Hemoglobin 30.1 pg (26-34); Mean Corpuscular Volume 93.1 fl (80-100); Nucleated Red Blood Cells Absolute Auto 0.000 K/mm3 (0.0-0.012); Nucleated Red Blood Cells Perc 0.0 % (0.0-0.2); Platelet Count Result 345 k/mm3 (150-375); Red Blood Count 4.32 M/mm3 (4.2-5.4); White Blood Count 6.7 K/mm3 (4.5-10.0)
[2025-07-25 10:20] LABS: Alanine Aminotransferase 16 U/L (6-35); Albumin Level 4.0 g/dL (3.5-5.1); Alkaline Phosphatase 45 U/L (38-126); Anion Gap 9 mmol/L (4-12); Aspartate Amino Transferase 30 U/L (14-36); Bilirubin,Total 0.6 mg/dL (0.2-1.3); Blood Urea Nitrogen 14 mg/dL (7-17); Calcium 8.9 mg/dL (8.4-10.2); Carbon Dioxide 23 mmol/L (22-30); Chloride 106 mmol/L (98-107); Cholesterol 156 mg/dL (0-200); Estimated Glomerular Filt Rate > 60; Glucose 94 mg/dL (65-110); HDL Direct 48 mg/dL; Potassium 4.2 mmol/L (3.4-5.0); Sodium 138 mmol/L (137-145); Total Protein 7.1 g/dL (6.3-8.2); Triglycerides 144 mg/dL (<150)
[2025-07-25 10:24] LABS: Hemoglobin A1C 5.7 % (<5.7)
== END 2025-07-25 08:39 | disposition home or self-care (01) ==
PROVIDERS: PCP Family Medicine; Visit Provider Student in an Organized Health Care Education/Training Program
DX: E78.2 Mixed hyperlipidemia (principal); R73.01 Impaired fasting glucose
CPT/HCPCS: 36415; 80053; 80061; 83036; 85025

== ENCOUNTER 2025-08-01 10:29 | Outpatient (CLI) | payer MEDICARE, OTHER, SELFPAY ==
--- NOTE | ~2025-08-01 | MM_ITS ---
EXAMINATION: MM diagnostic liz LT w garrett HISTORY: History of left-sided invasive ductal carcinoma status post lumpectomy in March 2024. Status post radiation therapy and tamoxifen therapy. TECHNIQUE: Full field digital craniocaudal, mediolateral oblique and medial lateral 3-D tomosynthesis images were obtained and synthetic 2-D images were generated. CAD analysis was submitted and interpreted. COMPARISON: Mammogram from 01/21/2025, 05/01/2022 BREAST PARENCHYMAL COMPOSITION: The breasts are heterogeneously dense, which may obscure small masses. FINDINGS: Grossly stable postoperative/treatment change in the left breast without new dominant mass or suspicious calcifications. IMPRESSION: 1. Grossly stable postoperative/treatment change in the left breast without new dominant mass or suspicious calcifications. The findings are probably benign. A six-month follow-up diagnostic left breast mammogram is recommended. BI-RADS 3-Probably benign-Short interval follow-up suggested. Reviewed, dictated and finalized at location Q.
--- OUTSIDE RECORDS SUMMARY | 2025-08-01 11:35 | XMS_ITS | Encounter Summary ---
Author Organization [facility] Address 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 Gender Identity Not on file Sexual Orientation Not on file documented as of this encounter Plan of Treatment Upcoming Encounters Date Type Department Care Team (Late st Contact Info) Description 08/15/2025 10:15 AM CDT Office Visit [facility] Oncology and Hematology - Brayan [address] [facility] [address] [place] [address] Esdras Crowley MD [address] [facility] [address] [place] [address] documented as of this encounter Procedures Procedure Name Priority Date/Time Associated Diagnosis Comments XR CHEST PA AND LATERAL 2 VW Routine 11/25/2007 12:27 PM GEOSPATIAL TECHNOLOGIST documented in this encounter Results * XR CHEST PA AND LATERAL (11/25/2007 12:27 PM GEOSPATIAL TECHNOLOGIST) Anatomical Region Laterality Modality Chest Other 11/25/2007 12:2 7 PM GEOSPATIAL TECHNOLOGIST Narrative 11/25/2007 12:29 PM GEOSPATIAL TECHNOLOGIST [address] [address] Admit Date: 11/25/2007 ELIS PEARSON Sex: F Admit Prov: YINKA ELLISON Date: 1955 Primary Care Prov: PCP , NONE CMRN: [id number] Room: [facility]: [id number] IMAGING SERVICES Ordering Prov: N/A Accession Number: [id number] Interpretation PA and lateral chest x-ray. History: Cough. Findings: The lung narvaez are clear and well aerated without significant infiltrate. There is no pneumothorax or pleural effusion. The heart size is normal. Impression: No acute disease. . Dictated by: EDWIGE MOLINA 11/25/2007 12:29 Electronically signed by: EDWIGE MOLINA 11/25/2007 12:29 Procedure Note Edwige Molina 11/25/2007 [address] [address] [place], [place] [address] Admit Date: 11/25/2007 ELIS PEARSON Sex: F Admit Prov: YINKA ELLISON Date: 1955 Primary Care Prov: PCP , NONE CMRN: [id number] [id number] [facility] Ordering Prov: N/A Interpretation PA [...] on filedocumented in this encounter Care Teams Slip Cover Sewer Relationship Specialty Start Date End Date Javier Wilson MD [address] [facility] [address] [place] [address] PCP - General Family Practice 03/28/25 documented as of this encounter
--- OUTSIDE RECORDS SUMMARY | 2025-08-01 11:35 | XMS_ITS | Encounter Summary ---
Author Organization [facility] Address [address] [place] [address] Care Team Providers Care Head Start Teacher Name Role Phone Javier Wilson MD Primary Care Provider [phone] Encounter Details Date Type Department Care Team (Latest Contact Info) Description 01/20/2004 Outpatient Historical HIS [facility] Flako Gordon MD ACUTE URI NOS (Primary Dx) Social History Tobacco Use Types Packs/Day Years Used Date Smoking Tobacco: Never Assessed Comments Unknown Sex and Gender Information Value Date Recorded Sex Assigned at Not on file Legal Sex Female 2:53 AM SKEIN BANDER Gender Identity Not on file Sexual Orientation Not on file documented as of this encounter Plan of Treatment Upcoming Encounters Date Type Department Care Team (Late st Contact Info) Description 08/15/2025 10:15 AM CDT Office Visit [facility] Oncology and Hematology - Brayan [address] [facility] [address] [place] [address] Esdras Crowley MD [address] [facility] [address] [place] [address] documented as of this encounter Visit Diagnoses Diagnosis Acute upper respiratory infections of unspecified site- Primary documented in this encounter Care Teams Head Start Teacher Relationship Specialty Start Date End Date Javier Wilson MD [address] [facility] [address] [place] [address] PCP - General Family Practice 03/28/25 documented as of this encounter
--- OUTSIDE RECORDS SUMMARY | 2025-08-01 11:35 | XMS_ITS | Clinical Summary ---
Author Organization [facility] Julien Rodríguez Address [address] [place] [address] Care Team Providers Care Section Leader And Machine Setter Name Role Phone Javier Wilson MD Primary Care Provider [phone] Allergies Active Allergy Reactions Criticality Noted Date [...] MG) BY MOUTH DAILY 90 Tablet 3 06/27/2025 Active Active Problems No known active problems Encounters Date Type Department Care Team Description 07/28/2025 Telephone [facility] Oncology and Hematology - Brayan [address] [place] [address] Esdras Crowley MD labs for appt 07/12/2025 External Device Data STL ABSTRACTION Provider, Abstract 07/05/2025 External Device Data STL ABSTRACTION Provider, Abstract 06/27/2025 Refill [facility] Oncology and Hematology Brayan [address] [place] [address] Esdras Crowley MD 06/08/2025 External Device Data [...] on file Legal Sex Female 2:53 AM PRODUCT 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 Gender Identity Not on file Sexual Orientation [...] Description 08/15/2025 10:15 AM CDT Office Visit [facility] Oncology and Hematology [facility] [address] [place] [address] Esdras Crowley MD [address] [facility] [address] [place] [address] Health Maintenance Due Date Last [...] 05/10/2032 Insurance MEDICARE PART A AND B [facility] [employer] Care Teams Section Leader And Machine Setter Relationship Specialty Start Date End Date Javier Wilson MD [address] [facility] [address] [place] [address] PCP - General Family Practice 03/28/25
== END 2025-08-01 10:30 | disposition home or self-care (01) ==
LOC: ANHFOHIMG 10:32
PROVIDERS: PCP Family Medicine; Visit Provider Surgery
DX: C50.912 Malignant neoplasm of unspecified site of left female breast (principal); Z98.890 Other specified postprocedural states; R92.8 Other abnormal and inconclusive findings on diagnostic imaging of breast
CPT/HCPCS: 77061; 77065; G0279

== ENCOUNTER 2025-08-03 13:54 | Outpatient (CLI) | payer MEDICARE, OTHER, SELFPAY ==
[2025-08-03 14:05] LABS: Hematocrit 38.8 % (37.0-47.0); Hemoglobin 12.6 g/dL (12.0-15.0); Immature Granulocyte Percent A 0.4 % (0-0.5); Lymphocytes Absolute Auto 1.84 K/mm3 (0.9-3.2); Mean Corpuscular HGB Conc 32.5 g/dl (32-36); Mean Corpuscular Hemoglobin 30.1 pg (26-34); Mean Corpuscular Volume 92.8 fl (80-100); Nucleated Red Blood Cells Absolute Auto 0.000 K/mm3 (0.0-0.012); Nucleated Red Blood Cells Perc 0.0 % (0.0-0.2); Platelet Count Result 314 k/mm3 (150-375); Red Blood Count 4.18 M/mm3 (4.2-5.4); White Blood Count 8.1 K/mm3 (4.5-10.0)
--- OUTSIDE RECORDS SUMMARY | 2025-08-03 16:10 | XMS_ITS | Encounter Summary ---
Author Organization [facility] Address [address] [place] [address] Care Team Providers Care Wind Tunnel Mechanic Name Role Phone Javier Wilson MD Primary Care Provider [phone] Encounter Details Date Type Department Care Team (Late st Contact Info) Description 11/25/2007 Outpatient Historical [place] [facility] [facility] [place] Yinka Baez MD NO ADDRESS ON FILE Social History Tobacco Use Types Packs/Day Years Used Date Smoking Tobacco: Never Assessed Comments Unknown Sex and Gender Information Value Date Recorded Sex Assigned at Not on file Legal Sex Female 2:53 AM ENT NURSE Gender Identity Not on file Sexual Orientation Not on file documented as of this encounter Plan of Treatment Upcoming Encounters Date Type Department Care Team (Late st Contact Info) Description 08/15/2025 10:15 AM CDT Office Visit [facility] Oncology and Hematology - Brayan [address] [facility] [address] [place] [address] Esdras Crowley MD [address] [facility] [address] [place] [address] documented as of this encounter Procedures Procedure Name Priority Date/Time Associated Diagnosis Comments XR CHEST PA AND LATERAL 2 VW Routine 11/25/2007 12:27 PM ENT NURSE documented in this encounter Results * XR CHEST PA AND LATERAL (11/25/2007 12:27 PM ENT NURSE) Anatomical Region Laterality Modality Chest Other 11/25/2007 12:2 7 PM ENT NURSE Narrative 11/25/2007 12:29 PM ENT NURSE [address] [address] Admit Date: 11/25/2007 ELIS PEARSON Sex: F Admit Prov: YINKA ELLISON Date: 1955 Primary Care Prov: PCP , NONE CMRN: [id number] Room: [facility]: [id number] IMAGING SERVICES Ordering Prov: N/A Accession Number: [id number] Interpretation PA and lateral chest x-ray. History: Cough. Findings: The lung narvaez are clear and well aerated without significant infiltrate. There is no pneumothorax or pleural effusion. The heart size is normal. Impression: No acute disease. . Dictated by: EDWIGE MOLINA 11/25/2007 12:29 Electronically signed by: EDWIGE MOLINA 11/25/2007 12:29 Procedure Note Edwige Molina 11/25/2007 [address] [address] [place], [place] [address] Admit Date: 11/25/2007 ELIS PEARSON Sex: F Admit Prov: YINKA ELLISON Date: 1955 Primary Care Prov: PCP , NONE CMRN: [id number] [id number] IM[facility]ING [facility] Ordering Prov: N/A Interpretation PA [...] on filedocumented in this encounter Care Teams Wind Tunnel Mechanic Relationship Specialty Start Date End Date Javier Wilson MD [address] [facility] [address] [place] [address] PCP - General Family Practice 03/28/25 documented as of this encounter
--- OUTSIDE RECORDS SUMMARY | 2025-08-03 16:10 | XMS_ITS | Encounter Summary ---
Author Organization [facility] Address 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 Gender Identity Not on file Sexual Orientation Not on file documented as of this encounter Plan of Treatment Upcoming Encounters Date Type Department Care Team (Late st Contact Info) Description 08/15/2025 10:15 AM CDT Office Visit [facility] Oncology and Hematology - Brayan [address] [facility] [address] [place] [address] Esdras Crowley MD [address] [facility] [address] [place] [address] documented as of this encounter Visit Diagnoses Diagnosis Acute upper respiratory infections of unspecified site- Primary documented in this encounter Care Teams Invoice Machine Operator Relationship Specialty Start Date End Date Javier Wilson MD [address] [facility] [address] [place] [address] PCP - General Family Practice 03/28/25 documented as of this encounter
--- OUTSIDE RECORDS SUMMARY | 2025-08-03 16:10 | XMS_ITS | Clinical Summary ---
Author Organization [facility] Julien Rodríguez Address [address] [place] [address] Care Team Providers Care Cashier Associate Name Role Phone Javier Wilson MD Primary Care Provider [phone] Allergies Active Allergy Reactions Criticality Noted Date [...] Type Department Care Team Description 07/28/2025 Telephone [facility] Oncology and Hematology - Brayan [address] [place] [address] Esdras Crowley MD labs for appt 07/12/2025 External Device Data STL ABSTRACTION Provider, Abstract 07/05/2025 External Device Data STL ABSTRACTION Provider, Abstract 06/27/2025 Refill [facility] Oncology and Hematology Brayan [address] [place] [address] Esdras Crowley MD 06/08/2025 External [...] on file 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 Female 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 Gender Identity Not on file Sexual [...] Description 08/15/2025 10:15 AM CDT Office Visit [facility] Oncology and Hematology [facility] [address] [place] [address] Esdras Crowley MD [address] [facility] [address] [place] [address] Health Maintenance Due Date Last [...] VACCINE (#1) 2025 BREAST CANCER SCREENING 01/21/2026 01/22/20 25, 03/12/2024, 02/06/2024, Additional history exists OSTEOPOROSIS SCREENING 01/15/2029 2024, 2020 RSV VACCINE (60+ or ) (1 - 1-dose 75+ series) 2029 COLORECTAL SCREENING 05/10/2032 05/10/2022 Colorectal Cancer Screening 05/10/2032 Insurance MEDICARE PART A AND B FOR LIFE Care Teams Cashier Associate Relationship Specialty Start Date End Date Javier Wilson MD [address] [facility] [address] [place] [address] PCP - General Family Practice 03/28/25
[2025-08-03 16:32] LABS: Alanine Aminotransferase 21 U/L (6-35); Albumin Level 4.1 g/dL (3.5-5.1); Alkaline Phosphatase 58 U/L (38-126); Anion Gap 9 mmol/L (4-12); Aspartate Amino Transferase 44 U/L (14-36); Bilirubin,Total 0.4 mg/dL (0.2-1.3); Blood Urea Nitrogen 13 mg/dL (7-17); Calcium 9.2 mg/dL (8.4-10.2); Carbon Dioxide 23 mmol/L (22-30); Chloride 105 mmol/L (98-107); Estimated Glomerular Filt Rate > 60; Glucose 141 mg/dL (65-110); Potassium 4.1 mmol/L (3.4-5.0); Sodium 137 mmol/L (137-145); Total Protein 7.3 g/dL (6.3-8.2)
== END 2025-08-03 13:55 | disposition home or self-care (01) ==
LOC: ANHLAB 13:55
PROVIDERS: PCP Family Medicine; Visit Provider Internal Medicine Hematology & Oncology
DX: C50.212 Malignant neoplasm of upper-inner quadrant of left female breast (principal); Z17.0 Estrogen receptor positive status [ER+]
CPT/HCPCS: 36415; 80053; 85025; 86300